=== PATIENT | female | born 1960 | race Caucasian/White ===

== ENCOUNTER → 2016-09-27 | Outpatient (CLI) | payer MEDICAID ==
[2016-09-27 18:08] LABS: ALBUMIN 3.6 GM/DL (3.2-5.2); CALCIUM LEVEL 9.1 MG/DL (8.5-10.1); CREATININE FOR GFR 5.24 MG/DL (0.55-1.02); GLOMERULAR FILTRATION RATE 9.1 (>51); MAGNESIUM LEVEL 2.1 MG/DL (1.8-2.4); POTASSIUM SERUM 4.4 MEQ/L (3.5-5.1)
[2016-09-27 18:14] LABS: MEAN CORPUSCULAR VOLUME 84.5 fl (80.0-96.0); WHITE BLOOD COUNT 9.4 K/mm3 (4.0-10.0)
== END ==
LOC: M WUC 13:40
PROVIDERS: ATTEND Internal Medicine Nephrology
DX: N18.5 Chronic kidney disease, stage 5 (principal)

== ENCOUNTER → 2016-11-15 | Outpatient (REF) | payer MEDICAID ==
[2016-11-15 19:02] LABS: CHOLESTEROL LEVEL 166 MG/DL (<200); TRIGLYCERIDES LEVEL 323 MG/DL (<150)
[2016-11-16 11:04] LABS: HEPATITIS B SURFACE ANTIBODY NEGATIVE (POSITIVE)
== END ==
LOC: M LAB REF 16:54
PROVIDERS: ATTEND Internal Medicine Nephrology
DX: N18.5 Chronic kidney disease, stage 5 (principal)

== ENCOUNTER → 2017-01-25 | Outpatient (REF) | payer OTHER ==
[2017-01-25 19:11] LABS: CHOLESTEROL LEVEL 162 MG/DL (<200); TRIGLYCERIDES LEVEL 351 MG/DL (<150)
[2017-01-28 10:35] LABS: HEPATITIS B SURFACE ANTIBODY NEGATIVE (POSITIVE)
== END ==
LOC: M LAB REF 16:50
PROVIDERS: ATTEND Internal Medicine Nephrology
DX: N18.6 End stage renal disease (principal)

== ENCOUNTER → 2017-02-19 | Outpatient (CLI) | payer OTHER ==
[2017-02-19 19:16] LABS: CREATININE FOR GFR 2.37 MG/DL (0.55-1.02); GLOMERULAR FILTRATION RATE 22.6 (>51); POTASSIUM SERUM 4.4 MEQ/L (3.5-5.1)
== END ==
LOC: M SMT 15:35
PROVIDERS: ATTEND Surgery Vascular Surgery
DX: N18.6 End stage renal disease (principal)

== ENCOUNTER → 2017-02-21 | Outpatient (CLI) | payer OTHER ==
[~2017-02-21] MED LIST: ATEN50TA2 PO; BREO1INH INH; FEBU40TA PO; GABA-279 PO; HEPARIN 1,000 UNITS/ML 10ML VIAL (FOR RADIOLOGY& DIALYSIS ONLY) As Ordered ONE; HYDR-3713 PO; ISOVUE-300 61% 50ML VIAL (Q9967) As Ordered ONE; LOSA50TA20 PO; MIDAZOLAM INJ 2 MG/2 ML VIAL (J2250) As Ordered ONE; NEXI40CA PO; SING10TA32 PO; VITA100067 PO; ZYRT10TA2 PO; fentaNYL 100 MCG/2 ML INJECTION (J3010) As Ordered ONE
--- NOTE | 2017-02-27 20:54 | REP ---
IMAGES DURING AV FISTULA ANGIOGRAM: Multiple angiographic images obtained of AV fistula. 0.6 minutes fluoroscopy time utilized for the procedure. Signed by Carlos Valenzuela MD 02/28/2017 09:59 A
--- NOTE | 2017-03-07 20:24 | RO ---
DATE OF PROCEDURE: 02/21/2017 PREPROCEDURE DIAGNOSES: End-stage renal disease, dysfunctional left brachiocephalic arterial venous fistula. POSTPROCEDURE DIAGNOSES: End-stage renal disease, dysfunctional left brachiocephalic arterial venous fistula. OPERATIVE PROCEDURE: Left brachiocephalic arteriovenous fistulogram, left cephalic vein angioplasty with 7 x 150 mm balloon. Retrograde brachial artery angiogram. SURGEON: Karl Chavez MD BUSHEL GIRL: ANESTHESIA: Local with sedation with 1 mg of Versed, 50 mg of fentanyl and 2 mL of 2% lidocaine. FLUORO TIME: 0.6 minutes. CONTRAST: 6 mL. HEPARIN: None. COMPLICATIONS: None. DRAINS: None. SPECIMENS: None. IMPLANTS: None. INDICATION: The patient is a 56-year-old female with end-stage renal disease who dialyzes through a left brachiocephalic arteriovenous fistula with some difficulty. The patient will undergo a fistulogram with possible angioplasty and stent. The patient has difficulty with cannulation, especially in the upper arm. The risks, benefits and alternative treatment options were discussed with the patient. Alternative treatment options included but were not limited to no intervention. The risks included, but were not limited to infection, bleeding, loss of arterial venous access, Steal syndrome, possible need for further open surgical intervention, cerebrovascular accident, myocardial infarction, pulmonary embolus, deep venous thrombosis (DVT), loss of limb, loss of life, and poor outcome. The patient understands, accepts these risks and consents to proceed. DESCRIPTION OF PROCEDURE: The patient was taken to the angiography suite, placed supine on the angiography room table and the left upper extremity was prepped and draped in a standard surgical fashion. The arteriovenous fistula was cannulated with a micropuncture needle after anesthetizing the overlying skin with 1% lidocaine. The micropuncture wire was advanced through the micropuncture needle which was upsized to a micropuncture sheath. A fistulogram was performed showing the cephalic vein to be patent and quite tortuous in the upper arm with good flow into the central venous system with no central venous stenosis noted. There was some minor narrowing in the cephalic vein in the mid upper arm in the areas of tortuosity of approximately 60%. The cephalic vein from the puncture site at the antecubital fossa to the cephalic arch was angioplastied with a 7 x 150 mm balloon. A followup fistulogram showed resolution of the stenoses with improved size and flow through the fistula. A retrograde brachial artery angiogram was then performed during inflation of the 7 x 150 mm balloon showing the remainder of the cephalic vein to be patent to the anastomosis to the brachial artery with good flow in the brachial artery proximally and distally. There was some minor narrowing at the cannulation site but this was secondary to insertion of the cannula and sheath and there was good flow noted around this area. Catheters and wires were then removed. The sheath was removed and a #2-0 Prolene suture placed at the puncture site for hemostasis. Dressings were then applied. The patient tolerated the procedure well. All instruments, sponge and needle counts were correct at the end of the case. There were no complications. Dr. Chavez was present for and directed the entire case. The patient was transferred to the holding area and subsequently to the floor in stable condition. The left brachiocephalic arteriovenous fistula was stable for use with hemodialysis access. RADIOLOGIC SUPERVISION INTERPRETATION: Initial fistulogram showed tortuosity and serpiginous lie of the cephalic vein in the mid upper arm with areas of stenosis in this region. Remainder of the cephalic vein was patent in the central venous system with no central venous stenosis or occlusion noted. The cephalic vein was angioplastied with a 7 x 150 balloon with a followup fistulogram showing resolution of the stenoses. A retrograde brachial artery angiogram showed good filling of the brachial artery proximal and distal to the arteriovenous anastomosis and no stenosis at the arteriovenous anastomosis. There was some mild narrowing at the entry site of the sheath. This appeared to be secondary to the sheath entry site and there appeared to be good flow around this region.
== END ==
LOC: M IRPRO 08:23
PROVIDERS: ATTEND Surgery Vascular Surgery
DX: N18.6 End stage renal disease (principal); I77.0 Arteriovenous fistula, acquired; Z88.6 Allergy status to analgesic agent; Z88.2 Allergy status to sulfonamides; Z88.8 Allergy status to other drugs, medicaments and biological substances

== ENCOUNTER → 2017-03-22 | Outpatient (CLI) | payer OTHER ==
[~2017-03-22] MED LIST changes: -HEPARIN 1,000 UNITS/ML 10ML VIAL (FOR RADIOLOGY& DIALYSIS ONLY) As Ordered ONE; -ISOVUE-300 61% 50ML VIAL (Q9967) As Ordered ONE; -MIDAZOLAM INJ 2 MG/2 ML VIAL (J2250) As Ordered ONE; -fentaNYL 100 MCG/2 ML INJECTION (J3010) As Ordered ONE
--- NOTE | 2017-03-22 16:20 | REP ---
CT abdomen pelvis without IV and oral contrast per The patient has known polycystic renal disease. Comparison 04/08/2008. On the comparison study there were four hepatic cysts. On the study today only two of the previous four cysts are identified, one in the lateral segment of the left lobe measuring 13 mm, not significantly changed, and the other in the medial segment of the left lobe measuring 13 ml, not significantly changed. The other two hepatic cysts identified previously are no longer identified on the current study. The the patient indicates she has a cholecystectomy. There is no identifiable gallbladder. The pancreas and spleen are normal size and unremarkable. There are innumerable renal cortical cysts bilaterally, unchanged from the comparison study, compatible with the clinical history. The kidneys are diffusely enlarged. The right kidney measures 26 cm craniocaudad and the left kidney measures 28 cm craniocaudad. (Previously 22 cm and 26 cm respectively). The adrenals are unremarkable. The abdominal aorta is unremarkable. The bowel and mesentery are unremarkable. Pelvis: The bladder, vaginal cuff and adnexa are unremarkable. There is no adenopathy or ascites. There is a tiny fat containing umbilical hernia, unchanged. Impression: The findings are compatible with the clinical diagnosis of polycystic renal disease. There are two hepatic cysts as described. Otherwise, essentially negative CT study of the abdomen and pelvis. Signed by Carlos Navarro MD 03/22/2017 04:12 P
== END ==
LOC: M RAD 14:50
PROVIDERS: ATTEND Internal Medicine Nephrology
DX: Q61.2 Polycystic kidney, adult type (principal); K42.9 Umbilical hernia without obstruction or gangrene; K76.89 Other specified diseases of liver

== ENCOUNTER → 2017-04-23 | Outpatient (CLI) | payer OTHER ==
[~2017-04-23] MED LIST changes: +HEPARIN 1,000 UNITS/ML 10ML VIAL (FOR RADIOLOGY& DIALYSIS ONLY) As Ordered ONE; +ISOVUE-300 61% 50ML VIAL (Q9967) As Ordered ONE; +MIDAZOLAM INJ 2 MG/2 ML VIAL (J2250) As Ordered ONE; +fentaNYL 100 MCG/2 ML INJECTION (J3010) As Ordered ONE
--- NOTE | 2017-05-21 08:06 | REPKIM ---
DATE OF PROCEDURE: 04/23/2017 PREPROCEDURE DIAGNOSIS: End stage renal disease, dysfunctional left brachiocephalic arteriovenous fistula. POSTPROCEDURE DIAGNOSIS: End stage renal disease, dysfunction left brachiocephalic arteriovenous fistula. PROCEDURE: Left brachiocephalic arteriovenous fistulogram, retrograde left brachial artery angiogram, left cephalic vein angioplasty with 8 x 40 Bryce balloon. SURGEON: Dr. Ángel Chavez. ANESTHESIOLOGY TEACHER: Latonia Hernandez and Stacey Bukc, RT ANESTHESIA: Local with sedation with 1 mg of Versed, 50 mcg of Fentanyl and 1 mL of 2% lidocaine. ESTIMATED BLOOD LOSS: SEDATION TIME: From 8:48 a.m. to 9:02 a.m. with sedation administered by myself and the cardiopulmonary monitoring performed by the RN in the room under my direct supervision. CONTRAST: 4 mL. COMPLICATIONS: None. DRAINS: None. SPECIMENS: None. IMPLANTS: None. FLUORO TIME: 1.3 minutes. INDICATION: Patient is a 56-year-old female with end stage renal disease who dialyzes through a PermCath and a left brachiocephalic arteriovenous fistula. Patient has had difficulty with cannulation and use of the left brachiocephalic arteriovenous fistula due to non-maturation. Patient will undergo a fistulogram with possible angioplasty and/or stent. Risks, benefits and alternative treatment options were discussed with the patient. Alternative treatment options including but were not limited to no intervention. Benefits included but were not limited to improved function and use of the fistula with removal of the perm cath. Risks included but were not limited to infection, bleeding, possible need for open surgical intervention, steal syndrome, loss of arteriovenous access, cerebrovascular accident, myocardial infarction, pulmonary embolus, deep venous thrombosis (DVT), loss of limb, loss of life and poor outcome. Patient understands, accepts these risks and consents to proceed. All of the patient's questions were answered. The patient voices understanding of these risks, benefits and alternative treatment options. PROCEDURE: The patient was taken to the angiography suite and placed supine on the angiography room table and the left upper extremity was prepped and draped in the standard surgical fashion. The arteriovenous fistula was then cannulated with a micropuncture needle after anesthetizing the overlying skin with 1% lidocaine. The micropuncture wire was advanced through the micropuncture needle which was upsized to a micropuncture sheath. A fistulogram was performed showing multiple areas of narrowing along the course of the cephalic vein which were approximately 60-70% with the central venous system being widely patent. The cephalic vein along the course from the puncture site to the cephalic arch was then angioplastied with an 8 x 40 mm balloon. A retrograde left brachial artery angiogram was performed showing the remainder of the cephalic vein to be widely patent to the brachial artery with no stenosis at the brachial artery to cephalic vein anastomosis. A completion fistulogram was then performed after angioplasty of the cephalic vein showing resolution of the stenoses with good flow through the arteriovenous fistula. The catheters and wires were removed, the sheath was removed and a #2-0 Prolene suture was placed at the puncture site for hemostasis. Dressings were then applied. The patient tolerated the procedure well. All instrument, sponge and needle counts were correct at the end of the case. There were no complications. Dr. Chavez was present for and directed the entire case. Patient's fistula had a good thrill palpable at the completion of the intervention. Patient was transferred to the holding area and subsequently discharged in stable condition once the #2-0 Prolene suture was removed and good hemostasis noted.
== END | disposition home or self-care (01) ==
LOC: M IRPRO 07:23 → M RADPRO 07:23
PROVIDERS: ATTEND Surgery Vascular Surgery
DX: T82.590A Other mechanical complication of surgically created arteriovenous fistula, initial encounter (principal); I87.1 Compression of vein; N18.6 End stage renal disease; Z99.2 Dependence on renal dialysis
CPT/HCPCS: 36902; 99152; C1725; C1769; C1894; J2250; J3010; Q9967

== ENCOUNTER → 2017-05-24 | Outpatient (CLI) | payer OTHER ==
[~2017-05-24] MED LIST changes: -HEPARIN 1,000 UNITS/ML 10ML VIAL (FOR RADIOLOGY& DIALYSIS ONLY) As Ordered ONE; -ISOVUE-300 61% 50ML VIAL (Q9967) As Ordered ONE; -MIDAZOLAM INJ 2 MG/2 ML VIAL (J2250) As Ordered ONE; -fentaNYL 100 MCG/2 ML INJECTION (J3010) As Ordered ONE
--- NOTE | 2017-05-24 16:57 | ECGEPIP ---
Stationary ECG Study [facility] Test Date: 2017-05-24 Pat Name: KRYSTINA ASKEW Department: Room: - Gender: F Coding Coordinator: : 1960 Requested By: Melvin Cat Order Number: [id number] Reading MD: José Luis Goldman Measurements Intervals [place] Rate: 64 P: 56 MD: 159 QRS: -27 QRSD: 82 T: 27 QT: 417 QTc: 433 Interpretive Statements Normal sinus rhythm Left axis deviation Delayed anterior R wave progression Nonspecific T wave abnormality No significant change when compared to prior tracing of 02/12/2015 Electronically Signed On 05-24-2017 16:56:56 EDT by José Luis Goldman
== END ==
LOC: M EKG 15:29
PROVIDERS: ATTEND Anesthesiology
DX: Z01.818 Encounter for other preprocedural examination (principal); K21.9 Gastro-esophageal reflux disease without esophagitis; R03.0 Elevated blood-pressure reading, without diagnosis of hypertension

== ENCOUNTER 2017-05-28 13:34 | Day surgery (SDC) | payer OTHER ==
[~2017-05-28] VITALS: Ht 154.9 cm; Wt 71.2 kg
[2017-05-28] MEDS ORDERED: NS 1,000 ML IV SCH ×2 (13:45→19:45)
[2017-05-28] MEDS ORDERED: LIDOCAINE 1% SDV INJ 30 ML VIAL As Ordered ONE (13:51)
[2017-05-28] MEDS ORDERED: BUPIVACAINE HCL 0.5% 30 ML VIAL As Ordered ONE (13:51)
[2017-05-28] MEDS ORDERED: ONDANSETRON 4MG/2ML VIAL (J2405) As Ordered ONE ×2 (16:34→19:05)
[2017-05-28] MEDS ORDERED: NORCO, ANEXSIA 5/325MG TABLET (HYDROcodone/ACETAMINOPHEN) As Ordered ONE (16:36)
[2017-05-28] MEDS ORDERED: ONDANSETRON 4MG/2ML VIAL (J2405) IV ONE (16:45)
[2017-05-28] MEDS ORDERED: NORCO, ANEXSIA 5/325MG TABLET (HYDROcodone/ACETAMINOPHEN) PO ONE (16:45)
[2017-05-28] MEDS ORDERED: PROPOFOL 200 MG/20 ML VIAL As Ordered ONE (18:46)
[2017-05-28] MEDS ORDERED: LIDOCAINE 2% INJ 100 MG/5 ML SYRINGE As Ordered ONE (18:46)
[2017-05-28] MEDS ORDERED: MIDAZOLAM INJ 2 MG/2 ML VIAL (J2250) As Ordered ONE (18:46)
[2017-05-28] MEDS ORDERED: fentaNYL 100 MCG/2 ML INJECTION (J3010) As Ordered ONE (18:46)
[2017-05-28] MEDS ORDERED: ROCURONIUM BROMIDE 50 MG/5 ML VIAL/SYRINGE As Ordered ONE (18:46)
[2017-05-28] MEDS ORDERED: GLYCOPYRROLATE INJ 0.2 MG/ML 2 ML VIAL As Ordered ONE (19:05)
[2017-05-28] MEDS ORDERED: METOCLOPRAMIDE INJ 10MG/2ML VIAL (J2765) As Ordered ONE (19:05)
[2017-05-28] MEDS ORDERED: NEOSTIGMINE 1MG/ML 5 ML SYRINGE (J2710) As Ordered ONE (19:05)
[2017-05-28] MEDS ORDERED: fentaNYL 100 MCG/2 ML INJECTION (J3010) IV PRN (19:45)
[2017-05-28] MEDS ORDERED: PERCOCET 5MG/325MG TAB PO PRN (19:45)
[2017-05-28] MEDS ORDERED: METOCLOPRAMIDE INJ 10MG/2ML VIAL (J2765) IV PRN (19:45)
[2017-05-28] MEDS ORDERED: ONDANSETRON 4MG/2ML VIAL (J2405) IV PRN (19:45)
[2017-05-28] MEDS ORDERED: MEPERIDINE INJ 25 MG/ML VIAL (J2175) IV PRN (19:45)
[2017-05-28] MEDS ORDERED: ALBUTEROL SULFATE 2.5 MG/0.5 ML INH NEB SOLN As Ordered ONE (20:06)
[2017-05-28 20:50] VITALS: BP 152/69
--- NOTE | 2017-06-26 17:38 | RO ---
DATE OF PROCEDURE: 05/28/2017 PREPROCEDURE DIAGNOSIS: End stage renal disease, polycystic kidney disease. POSTPROCEDURE DIAGNOSIS: End stage renal disease, polycystic kidney disease. PROCEDURE: Laparoscopic lysis of adhesions. Laparoscopic peritoneal dialysis catheter placement. SURGEON: Ángel Chavez MD CLERK GENERAL: None. ANESTHESIA: General endotracheal with 7 mL of 1% Lidocaine mixed with 1/2% Marcaine. ESTIMATED BLOOD LOSS: 500 mL. IV FLUIDS: 400 mL. COMPLICATIONS: None. DRAINS: None. SPECIMENS: None. IMPLANTS: 62 cm curl tail with a peritoneal dialysis catheter in the abdominal cavity. INDICATION: The patient is a 56-year-old female with currently dialyzes for a left brachial cephalic arteriovenous fistula and has had difficulty with cannulation as well as hematoma formation and would like to undergo attempted placement of the peritoneal dialysis catheter for peritoneal dialysis. Risks, benefits, and alternative treatment options were discussed with the patient. DESCRIPTION OF PROCEDURE: The patient was taken to the operating room. Placed supine on the operating room table and then prepped and draped in the standard surgical fashion. The 5 mm port was placed through a stab incision in the left upper quadrant, after which the abdominal cavity was insufflated. There was adhesions from the omentum to the umbilicus which were taken down sharply. After which a catheter was brought through a puncture wound in the infraumbilical region and tunneled to the port site in the left upper quadrant. Catheter was placed in the pelvis and secured with a suture after which the abdomen was desufflated. The catheter was flushed with 1 liter of saline which turned easily. The puncture wounds were closed using inverted 3-0 Monocryl suture. Dressings were applied. The patient tolerated the procedure well. All instrument, sponge and needle counts were correct at the end of the case. There were no complications. Dr. Chavez was present for and directed the entire case. The patient was transferred to the recovery room awake, alert, extubated and in stable condition.
== END 2017-05-28 21:15 | disposition home or self-care (01) ==
LOC: M SDC 13:34
PROVIDERS: ATTEND Surgery Vascular Surgery
DX: N18.6 End stage renal disease (principal); Q61.3 Polycystic kidney, unspecified; Z99.2 Dependence on renal dialysis

== ENCOUNTER → 2017-06-24 | Outpatient (CLI) | payer OTHER | LOC: M IRPRO 12:29 | PROVIDERS: ATTEND Surgery Vascular Surgery | DX: N18.6 End stage renal disease (principal); Z53.8 Procedure and treatment not carried out for other reasons ==

== ENCOUNTER → 2018-01-13 | Outpatient (REF) | payer OTHER, MEDICAID | LOC: M LAB REF 17:06 | DX: Q61.2 Polycystic kidney, adult type (principal); N39.0 Urinary tract infection, site not specified; N18.6 End stage renal disease | CPT/HCPCS: 87086 ==

== ENCOUNTER → 2018-01-22 | Outpatient (CLI) | payer OTHER ==
[~2018-01-22] MED LIST changes: -ATEN50TA2 PO; -BREO1INH INH; -FEBU40TA PO; -GABA-279 PO; +GASTROGRAFIN SOLUTION 30ML (Q9963) As Ordered; -HYDR-3713 PO; +ISOVUE-370 76% 100ML VIAL (Q9967) As Ordered; -LOSA50TA20 PO; -NEXI40CA PO; -SING10TA32 PO; -VITA100067 PO; -ZYRT10TA2 PO
== END ==
LOC: M RAD 13:54
DX: Q61.2 Polycystic kidney, adult type (principal); N18.6 End stage renal disease; R10.30 Lower abdominal pain, unspecified
CPT/HCPCS: Q9963

== ENCOUNTER → 2018-01-30 | Outpatient (CLI) | payer OTHER | LOC: M RAD 11:06 | DX: R91.8 Other nonspecific abnormal finding of lung field (principal); J90 Pleural effusion, not elsewhere classified; N18.6 End stage renal disease; Q61.2 Polycystic kidney, adult type; Z99.2 Dependence on renal dialysis | CPT/HCPCS: 71250 ==

== ENCOUNTER 2018-02-01 20:17 | Inpatient (IN) | payer OTHER ==
[2018-02-01 21:16] LABS: HEMOGLOBIN 14.5 g/dl (12.0-15.5); MEAN CORPUSCULAR HEMOGLOBIN 26.3 pg (27.0-33.0); MEAN CORPUSCULAR HGB CONC 30.2 g/dl (32.0-36.5); PLATELET COUNT, AUTOMATED 295 10^3/uL (150-450); RED BLOOD COUNT 5.52 10^6/uL (4.00-5.40); RED CELL DISTRIBUTION WIDTH 17.7 % (11.5-14.5); WHITE BLOOD COUNT 14.5 10^3/uL (4.0-10.0)
[2018-02-01 21:20] LABS: POS COUNT POS FLAG; POSITIVE MORPH POS FLAG
[2018-02-01 21:21] LABS: ADD MANUAL DIFFER YES; DIFF SLIDE NUMBER 193
[2018-02-01 21:42] LABS: LACTIC ACID SEPSIS PROTOCOL 3.5 MMOL/L (0.4-2.0)
[2018-02-01 21:42] LABS: ANISOCYTOSIS 1+; ATYPICAL LYMPH 1 % (0-5); BANDS 1 % (< 11); EOSINOPHILS 1 % (0-5); LYMPHOCYTES 12 % (16-52); MONOCYTES 7 % (0-8); NEUTROPHILS 78 % (35-75); PLATELET CLUMPS SMALL AMT; PLATELET ESTIMATE NORMAL (NORMAL); POLYCHROMASIA 1+
[2018-02-01 21:43] LABS: ALBUMIN 1.2 GM/DL (3.2-5.2); ALKALINE PHOSPHATASE 198 U/L (45-117); ALT/SGPT 31 U/L (12-78); ANION GAP 11 MEQ/L (8-16); AST/SGOT 20 U/L (7-37); BILIRUBIN,DIRECT 0.1 MG/DL (0.0-0.2); BILIRUBIN,TOTAL 0.4 MG/DL (0.2-1.0); BLOOD UREA NITROGEN 42 MG/DL (7-18); CALCIUM LEVEL 8.8 MG/DL (8.5-10.1); CARBON DIOXIDE LEVEL 30 MEQ/L (21-32); CHLORIDE LEVEL 88 MEQ/L (98-107); CPK CREATINE PHOSPHOKINASE 53 U/L (26-192); CREATININE FOR GFR 6.44 MG/DL (0.55-1.30); GLOMERULAR FILTRATION RATE 7.1 (>51); GLUCOSE, FASTING 218 MG/DL (70-100); SODIUM LEVEL 129 MEQ/L (136-145); TOTAL PROTEIN 7.1 GM/DL (6.4-8.2); TROPONIN I < 0.02 NG/ML (< 0.10)
[2018-02-01 21:44] LABS: CK-MB VALUE MASS 2.7 NG/ML (<3.6); MB/CK RELATIVE INDEX 5.09 (< OR =4); NT-PRO BNP 4658 PG/ML (<125)
[2018-02-01 21:47] LABS: POTASSIUM SERUM 2.8 MEQ/L (3.5-5.1)
[2018-02-01 22:31] LABS: MAGNESIUM LEVEL 3.7 MG/DL (1.8-2.4)
[2018-02-01] MEDS: POTASSIUM CHLORIDE 10% LIQ 20 MEQ/15 ML UDC PO (22:52)
[2018-02-01] MEDS: KCL 10MEQ/100ML SWI (KRUN) 10 MEQ in APPROPRIATE DILUENT 1 EA IV (22:52)
[2018-02-01 23:08] LABS: SLIDE REVIEW Report; SOURCE PERIPHERAL SMEAR
[2018-02-01 23:09] LABS: REASON FOR REVIEW ANEMIA / RBC MORPH
[2018-02-01 23:17] LABS: INR 1.05; PROTHROMBIN TIME 13.8 SECONDS (12.4-14.5)
[2018-02-01 23:18] LABS: PARTIAL THROMBOPLASTIN TIME 43.5 SECONDS (26.8-37.9)
[2018-02-01] MEDS ORDERED: CEFTAROLINE FOSAMIL 200 MG in D5W 50 ML IV (23:30)
[2018-02-01] MEDS ORDERED: IPRATROPIUM 0.5MG/ALBUTEROL 2.5MG INH SOL UD 3ML (DUONEB)(J7620) NEB (23:45)
[2018-02-01] MEDS ORDERED: NS 500 ML IV (23:45)
[2018-02-01] MEDS: LevoFLOXacin IV 750 MG in APPROPRIATE DILUENT 1 EA IV (23:55)
[2018-02-02] MEDS ORDERED: ACETAMINOPHEN TAB 650MG DOSE (2X325MG) PO
[2018-02-02] MEDS ORDERED: ONDANSETRON 4MG/2ML VIAL (J2405) IV
[2018-02-02] MEDS ORDERED: GLUCAGON FOR INJ 1 MG VIAL (J1610) SC (00:15)
[2018-02-02] MEDS ORDERED: GLUCOSE 4 GM CHEW TABLET PO (00:15)
[2018-02-02] MEDS ORDERED: DEXTROSE 50% 50 ML SYRINGE IV (00:15)
[2018-02-02 00:38] LABS: ABG BASE EXCESS 0.8 (-2.0-2.0); ABG HCO3 25.6 MEQ/L (22.0-26.0); ABG O2 SATURATION 97.6 % (95.0-99.0); ABG PARTIAL PRESSURE CO2 41.8 mmHg (35.0-45.0); ABG PARTIAL PRESSURE O2 92.2 mmHg (75.0-100.0); ABG STANDARD HCO3 25.2 MEQ/L (22.0-26.0); ABG TOTAL CO2 26.9 MEQ/L (22.0-29.0); ABG pH (ARTERIAL) 7.405 UNITS (7.350-7.450)
[2018-02-02 01:01] LABS: ESTIMATED AVERAGE GLUCOSE 177 MG/DL (60-110); HEMOGLOBIN A1c 7.8 %
[2018-02-02] MEDS: NS 1,000 ML IV ×4 (01:17→07:35)
[2018-02-02] MEDS ORDERED: VANCOMYCIN INTERMITTENT/PULSE DOSING BY CLINICAL PHARMACIST PER DOSING PROTOCOL XX (01:45)
[2018-02-02] MEDS: HumaLOG INSULIN (NovoLOG) PER UNIT SC ×6 (01:49→22:18)
[2018-02-02] MEDS: VANCOMYCIN HCL 1,000 MG, VIAL MATE ADAPTER 1 EACH in D5W 250 ML IV (02:01)
[2018-02-02] MEDS: POTASSIUM CHLORIDE 10 MEQ SR TABLET PO ×2 (02:02→08:46)
[2018-02-02] MEDS: NORCO, ANEXSIA 5/325MG TABLET (HYDROcodone/ACETAMINOPHEN) PO ×5 (02:03→21:24)
[2018-02-02 05:04] LABS: HEMATOCRIT 36.4 % (36.0-47.0); MEAN CORPUSCULAR HEMOGLOBIN 27.1 pg (27.0-33.0); MEAN CORPUSCULAR HGB CONC 30.8 g/dl (32.0-36.5); MEAN CORPUSCULAR VOLUME 87.9 fl (80.0-96.0); PLATELET COUNT, AUTOMATED 203 10^3/uL (150-450); POS COUNT POS FLAG; POSITIVE MORPH POS FLAG; RED BLOOD COUNT 4.14 10^6/uL (4.00-5.40); RED CELL DISTRIBUTION WIDTH 16.9 % (11.5-14.5); WHITE BLOOD COUNT 10.1 10^3/uL (4.0-10.0)
[2018-02-02 05:05] LABS: ADD MANUAL DIFFER YES; DIFF SLIDE NUMBER 79; HEMOGLOBIN 11.2 g/dl (12.0-15.5)
[2018-02-02] MEDS: IPRATROPIUM 0.5MG/ALBUTEROL 2.5MG INH SOL UD 3ML (DUONEB)(J7620) NEB ×4 (05:09→20:27)
[2018-02-02 05:19] LABS: CPK CREATINE PHOSPHOKINASE 42 U/L (26-192); TROPONIN I < 0.02 NG/ML (< 0.10)
[2018-02-02 05:20] LABS: CK-MB VALUE MASS 2.2 NG/ML (<3.6); MB/CK RELATIVE INDEX 5.23 (< OR =4)
[2018-02-02 05:20] LABS: LACTIC ACID SEPSIS PROTOCOL 3.6 MMOL/L (0.4-2.0)
[2018-02-02 05:23] LABS: ANION GAP 11 MEQ/L (8-16); BLOOD UREA NITROGEN 38 MG/DL (7-18); CARBON DIOXIDE LEVEL 24 MEQ/L (21-32); CHLORIDE LEVEL 99 MEQ/L (98-107); CREATININE FOR GFR 5.68 MG/DL (0.55-1.30); GLOMERULAR FILTRATION RATE 8.2 (>51); GLUCOSE, FASTING 175 MG/DL (70-100); POTASSIUM SERUM 3.6 MEQ/L (3.5-5.1); SODIUM LEVEL 134 MEQ/L (136-145)
[2018-02-02 05:29] LABS: ATYPICAL LYMPH 3 % (0-5); BANDS 2 % (< 11); EOSINOPHILS 2 % (0-5); LYMPHOCYTES 21 % (16-52); METAMYELOCYTES 1 % (0-0); MONOCYTES 6 % (0-8); NEUTROPHILS 65 % (35-75); PLATELET ESTIMATE NORMAL (NORMAL)
[2018-02-02 05:30] LABS: ANISOCYTOSIS 1+; PLATELET CLUMPS SMALL AMT; SMUDGE CELLS 1+
[2018-02-02 05:31] LABS: POLYCHROMASIA 1+
[2018-02-02 05:32] LABS: CALCIUM LEVEL 6.9 MG/DL (8.5-10.1); HYPOCHROMASIA 1+
[2018-02-02] MEDS: HEPARIN SOD (PORCINE) 5000 UNITS/ML VIAL SC ×3 (05:53→21:25)
[2018-02-02] MEDS: MONTELUKAST 10 MG TAB PO (07:55)
[2018-02-02] MEDS: HYDROCORTISONE 100 MG/2 ML VIAL (J1720) IV ×2 (07:55→16:55)
[2018-02-02] MEDS: GABAPENTIN 100 MG CAP PO ×2 (07:57→16:55)
[2018-02-02] MEDS: PANTOPRAZOLE 40MG TAB (PROTONIX) PO (07:58)
[2018-02-02] MEDS: LACTOBACILLUS ACIDOPHILUS CAP (BACID) PO ×3 (08:45→18:35)
[2018-02-02] MEDS: MEROPENEM INJ 1 GM in APPROPRIATE DILUENT 1 EA IV (08:46)
[2018-02-02] MEDS ORDERED: NORCO, ANEXSIA 5/325MG TABLET (HYDROcodone/ACETAMINOPHEN) PO (09:00)
[2018-02-02] MEDS ORDERED: POTASSIUM CHLORIDE 10% LIQ 20 MEQ/15 ML UDC PO (09:00)
[2018-02-02] MEDS ORDERED: MIDAZOLAM INJ 2 MG/2 ML VIAL (J2250) As Ordered ×4 (09:39→09:50)
[2018-02-02] MEDS ORDERED: LIDOCAINE 1% MDV 20ML VIAL As Ordered ×2 (09:42→10:22)
[2018-02-02] MEDS ORDERED: FLUMAZENIL 0.5 MG/5 ML VIAL As Ordered (09:42)
[2018-02-02] MEDS: MIDAZOLAM INJ 2 MG/2 ML VIAL (J2250) IV (10:24)
[2018-02-02 10:29] LABS: LDH LACTATE DEHYDROGENASE 280 U/L (84-246)
[2018-02-02] MEDS: ALTEPLASE 2 MG/2 ML VIAL (J2997 PER 1MG) XX (11:00)
[2018-02-02] MEDS: LIDOCAINE 1% MDV 20ML VIAL SC (11:00)
[2018-02-02 11:34] LABS: BEDSIDE GLUCOSE 252 MG/DL (70-105)
[2018-02-02 11:54] LABS: MAGNESIUM LEVEL 3.3 MG/DL (1.8-2.4)
[2018-02-02 15:13] LABS: VANCOMYCIN RANDOM 13.9 UG/ML
[2018-02-02] MEDS ORDERED: VANCOMYCIN HCL 1,000 MG, VIAL MATE ADAPTER 1 EACH in D5W 250 ML IV (16:00)
[2018-02-02] MEDS: VANCOMYCIN HCL 500 MG in D5W MINI-BAG PLUS 100 ML IV (17:10)
[2018-02-02 17:39] LABS: BEDSIDE GLUCOSE 289 MG/DL (70-105)
[2018-02-02] MEDS: NS 500 ML IV (20:49)
[2018-02-02] MEDS ORDERED: HumaLOG INSULIN (NovoLOG) PER UNIT SC (21:00)
[2018-02-02] MEDS: CETIRIZINE (ZyrTEC) 10 MG TAB PO (21:24)
[2018-02-02 22:19] LABS: BEDSIDE GLUCOSE 331 MG/DL (70-105)
[2018-02-03] MEDS: HYDROCORTISONE 100 MG/2 ML VIAL (J1720) IV ×5 (00:44→23:47)
[2018-02-03] MEDS: IPRATROPIUM 0.5MG/ALBUTEROL 2.5MG INH SOL UD 3ML (DUONEB)(J7620) NEB ×4 (01:25→19:33)
[2018-02-03 05:16] LABS: HEMOGLOBIN 11.9 g/dl (12.0-15.5); MEAN CORPUSCULAR HEMOGLOBIN 26.8 pg (27.0-33.0); MEAN CORPUSCULAR HGB CONC 30.5 g/dl (32.0-36.5); MEAN CORPUSCULAR VOLUME 87.8 fl (80.0-96.0); PLATELET COUNT, AUTOMATED 230 10^3/uL (150-450); RED BLOOD COUNT 4.44 10^6/uL (4.00-5.40); RED CELL DISTRIBUTION WIDTH 17.8 % (11.5-14.5); WHITE BLOOD COUNT 14.7 10^3/uL (4.0-10.0)
[2018-02-03 05:27] LABS: ANION GAP 11 MEQ/L (8-16); BLOOD UREA NITROGEN 32 MG/DL (7-18); CALCIUM LEVEL 7.8 MG/DL (8.5-10.1); CARBON DIOXIDE LEVEL 22 MEQ/L (21-32); CHLORIDE LEVEL 100 MEQ/L (98-107); CREATININE FOR GFR 5.06 MG/DL (0.55-1.30); GLOMERULAR FILTRATION RATE 9.4 (>51); GLUCOSE, FASTING 283 MG/DL (70-100); POTASSIUM SERUM 4.5 MEQ/L (3.5-5.1); SODIUM LEVEL 133 MEQ/L (136-145)
[2018-02-03 05:32] LABS: ADD MANUAL DIFFER YES; DIFF SLIDE NUMBER 84; POS COUNT POS FLAG; POSITIVE MORPH POS FLAG
[2018-02-03] MEDS: HEPARIN SOD (PORCINE) 5000 UNITS/ML VIAL SC ×3 (05:45→21:36)
[2018-02-03 05:55] LABS: BANDS 4 % (< 11); BASOPHILS 1 % (0-4); LYMPHOCYTES 8 % (16-52); MONOCYTES 2 % (0-8); MYELOCYTES 1 % (0-0); NEUTROPHILS 84 % (35-75)
[2018-02-03 05:56] LABS: ANISOCYTOSIS 1+; PLATELET ESTIMATE NORMAL (NORMAL)
[2018-02-03] MEDS: MEROPENEM INJ 1 GM in APPROPRIATE DILUENT 1 EA IV ×3 (08:00→16:13)
[2018-02-03 08:22] LABS: CORTISOL AM 12.2 UG/DL (4.3-22.4)
[2018-02-03 08:35] LABS: LACTIC ACID SEPSIS PROTOCOL 4.9 MMOL/L (0.4-2.0)
[2018-02-03] MEDS: FEBUXOSTAT 40 MG TABLET (ULORIC) PO (09:54)
[2018-02-03] MEDS: PANTOPRAZOLE 40MG TAB (PROTONIX) PO (09:54)
[2018-02-03] MEDS: LACTOBACILLUS ACIDOPHILUS CAP (BACID) PO ×2 (09:54→18:02)
[2018-02-03] MEDS: HumaLOG INSULIN (NovoLOG) PER UNIT SC ×4 (09:54→21:00)
[2018-02-03] MEDS: GABAPENTIN 100 MG CAP PO ×2 (09:55→16:12)
[2018-02-03] MEDS: MONTELUKAST 10 MG TAB PO (09:55)
[2018-02-03] MEDS: NORCO, ANEXSIA 5/325MG TABLET (HYDROcodone/ACETAMINOPHEN) PO ×2 (09:56→21:37)
[2018-02-03 12:20] LABS: BEDSIDE GLUCOSE 310 MG/DL (70-105)
[2018-02-03] MEDS ORDERED: SLF 3 ML SYR IV ×2 (12:30→14:00)
[2018-02-03 12:58] LABS: RBC BODY FLUID < 2 10^3/uL (<2)
[2018-02-03 12:59] LABS: APPEARANCE, BODY FLUID CLEAR (CLEAR); BF DIFF IF INDICATED? NO (NO); PERITONEAL DIALYSATE FL COLOR COLORLESS (COLORLESS); WBC BODY FLUID 9 /uL (0-10)
[2018-02-03] MEDS ORDERED: LINEZOLID 600MG TABLET (ZYVOX) PO (13:30)
[2018-02-03] MEDS ORDERED: LevoFLOXacin 250 MG TABLET PO (13:45)
[2018-02-03] MEDS: LevoFLOXacin 250 MG TABLET PO (15:00)
[2018-02-03] MEDS: LINEZOLID 600MG TABLET (ZYVOX) PO (15:00)
[2018-02-03 15:17] LABS: SOURCE, BODY FLUID PERITONEAL DIALYSATE
[2018-02-03] MEDS: SODIUM CHLORIDE 0.9% INJ 10 ML SYR IV ×4 (16:08→23:48)
[2018-02-03 17:31] LABS: BEDSIDE GLUCOSE 212 MG/DL (70-105)
[2018-02-03] MEDS: HEPARIN SOD (PORCINE) 5000 UNITS/ML VIAL PD (19:04)
[2018-02-03 21:18] LABS: BEDSIDE GLUCOSE 203 MG/DL (70-105)
[2018-02-03] MEDS: CETIRIZINE (ZyrTEC) 10 MG TAB PO (21:38)
[2018-02-03] MEDS ORDERED: LevoFLOXacin IV 500 MG in APPROPRIATE DILUENT 1 EA IV (23:00)
[2018-02-03 23:08] LABS: LACTIC ACID SEPSIS PROTOCOL 4.2 MMOL/L (0.4-2.0)
[2018-02-04] MEDS: IPRATROPIUM 0.5MG/ALBUTEROL 2.5MG INH SOL UD 3ML (DUONEB)(J7620) NEB ×4 (02:48→20:00)
[2018-02-04 03:17] LABS: HEMATOCRIT 38.7 % (36.0-47.0); HEMOGLOBIN 11.8 g/dl (12.0-15.5); MEAN CORPUSCULAR HEMOGLOBIN 26.9 pg (27.0-33.0); MEAN CORPUSCULAR HGB CONC 30.5 g/dl (32.0-36.5); MEAN CORPUSCULAR VOLUME 88.4 fl (80.0-96.0); PLATELET COUNT, AUTOMATED 217 10^3/uL (150-450); RED BLOOD COUNT 4.38 10^6/uL (4.00-5.40); RED CELL DISTRIBUTION WIDTH 18.1 % (11.5-14.5); WHITE BLOOD COUNT 16.8 10^3/uL (4.0-10.0)
[2018-02-04 03:18] LABS: ADD MANUAL DIFFER YES; DIFF SLIDE NUMBER 49; POS COUNT POS FLAG; POSITIVE MORPH POS FLAG
[2018-02-04 03:52] LABS: ANION GAP 12 MEQ/L (8-16); BLOOD UREA NITROGEN 31 MG/DL (7-18); CALCIUM LEVEL 7.3 MG/DL (8.5-10.1); CARBON DIOXIDE LEVEL 22 MEQ/L (21-32); CHLORIDE LEVEL 99 MEQ/L (98-107); CREATININE FOR GFR 4.89 MG/DL (0.55-1.30); GLOMERULAR FILTRATION RATE 9.8 (>51); GLUCOSE, FASTING 254 MG/DL (70-100); POTASSIUM SERUM 4.1 MEQ/L (3.5-5.1); SODIUM LEVEL 133 MEQ/L (136-145)
[2018-02-04 03:58] LABS: ANISOCYTOSIS 2+; BANDS 4 % (< 11); HYPOCHROMASIA 1+; LYMPHOCYTES 11 % (16-52); METAMYELOCYTES 1 % (0-0); MONOCYTES 5 % (0-8); NEUTROPHILS 79 % (35-75); PLATELET ESTIMATE NORMAL (NORMAL)
[2018-02-04] MEDS: VANCOMYCIN HCL 1,000 MG, VIAL MATE ADAPTER 1 EACH in D5W 250 ML IV (05:40)
[2018-02-04] MEDS: HEPARIN SOD (PORCINE) 5000 UNITS/ML VIAL SC ×3 (05:40→21:42)
[2018-02-04] MEDS: SODIUM CHLORIDE 0.9% INJ 10 ML SYR IV ×2 (05:40→17:21)
[2018-02-04] MEDS: HumaLOG INSULIN (NovoLOG) PER UNIT SC ×4 (08:48→21:00)
[2018-02-04] MEDS: HYDROCORTISONE 100 MG/2 ML VIAL (J1720) IV ×2 (08:48→17:27)
[2018-02-04] MEDS: LACTOBACILLUS ACIDOPHILUS CAP (BACID) PO ×2 (08:49→17:27)
[2018-02-04] MEDS: MONTELUKAST 10 MG TAB PO (08:50)
[2018-02-04] MEDS: GABAPENTIN 100 MG CAP PO ×2 (08:50→17:27)
[2018-02-04] MEDS: PANTOPRAZOLE 40MG TAB (PROTONIX) PO (08:50)
[2018-02-04] MEDS: NORCO, ANEXSIA 5/325MG TABLET (HYDROcodone/ACETAMINOPHEN) PO ×2 (08:50→21:41)
[2018-02-04 11:14] LABS: BEDSIDE GLUCOSE 323 MG/DL (70-105)
[2018-02-04] MEDS: SYMBICORT 80/4.5MCG INHALER 6GM INH ×2 (14:20→20:45)
[2018-02-04 17:11] LABS: BEDSIDE GLUCOSE 368 MG/DL (70-105)
[2018-02-04] MEDS: MEROPENEM INJ 1 GM in APPROPRIATE DILUENT 1 EA IV (17:26)
[2018-02-04] MEDS: LACTULOSE 20 GM/30 ML SYRUP UD PO (17:27)
[2018-02-04 20:20] LABS: BEDSIDE GLUCOSE 361 MG/DL (70-105)
[2018-02-04] MEDS: CETIRIZINE (ZyrTEC) 10 MG TAB PO (21:41)
[2018-02-05] MEDS: IPRATROPIUM 0.5MG/ALBUTEROL 2.5MG INH SOL UD 3ML (DUONEB)(J7620) NEB ×4 (01:41→20:00)
[2018-02-05] MEDS: HEPARIN SOD (PORCINE) 5000 UNITS/ML VIAL SC ×3 (05:12→22:36)
[2018-02-05] MEDS: SODIUM CHLORIDE 0.9% INJ 10 ML SYR IV ×2 (05:13→17:22)
[2018-02-05 06:03] LABS: HEMOGLOBIN 12.4 g/dl (12.0-15.5); MEAN CORPUSCULAR HEMOGLOBIN 26.6 pg (27.0-33.0); MEAN CORPUSCULAR HGB CONC 30.2 g/dl (32.0-36.5); MEAN CORPUSCULAR VOLUME 87.8 fl (80.0-96.0); PLATELET COUNT, AUTOMATED 209 10^3/uL (150-450); RED BLOOD COUNT 4.67 10^6/uL (4.00-5.40); RED CELL DISTRIBUTION WIDTH 18.6 % (11.5-14.5)
[2018-02-05 06:21] LABS: ANION GAP 13 MEQ/L (8-16); BLOOD UREA NITROGEN 35 MG/DL (7-18); CALCIUM LEVEL 7.9 MG/DL (8.5-10.1); CARBON DIOXIDE LEVEL 23 MEQ/L (21-32); CHLORIDE LEVEL 96 MEQ/L (98-107); CREATININE FOR GFR 4.79 MG/DL (0.55-1.30); GLUCOSE, FASTING 262 MG/DL (70-100); POTASSIUM SERUM 3.8 MEQ/L (3.5-5.1); SODIUM LEVEL 132 MEQ/L (136-145); VANCOMYCIN RANDOM 27.1 UG/ML
[2018-02-05 06:32] LABS: POSITIVE MORPH POS FLAG
[2018-02-05 06:33] LABS: ADD MANUAL DIFFER YES; DIFF SLIDE NUMBER 30; POS COUNT POS FLAG
[2018-02-05 07:17] LABS: ANISOCYTOSIS 1+; BANDS 1 % (< 11); LYMPHOCYTES 7 % (16-52); METAMYELOCYTES 3 % (0-0); MONOCYTES 7 % (0-8); MYELOCYTES 2 % (0-0); NEUTROPHILS 80 % (35-75); PLATELET ESTIMATE NORMAL (NORMAL)
[2018-02-05] MEDS: SYMBICORT 80/4.5MCG INHALER 6GM INH ×2 (07:47→21:22)
[2018-02-05] MEDS: HumaLOG INSULIN (NovoLOG) PER UNIT SC ×4 (08:21→22:46)
[2018-02-05] MEDS: MONTELUKAST 10 MG TAB PO (08:21)
[2018-02-05] MEDS: GABAPENTIN 100 MG CAP PO ×2 (08:21→16:25)
[2018-02-05] MEDS: FEBUXOSTAT 40 MG TABLET (ULORIC) PO (08:22)
[2018-02-05] MEDS: PANTOPRAZOLE 40MG TAB (PROTONIX) PO (08:22)
[2018-02-05] MEDS: NORCO, ANEXSIA 5/325MG TABLET (HYDROcodone/ACETAMINOPHEN) PO ×2 (08:22→22:35)
[2018-02-05] MEDS: LACTOBACILLUS ACIDOPHILUS CAP (BACID) PO ×2 (08:23→17:21)
[2018-02-05 12:40] LABS: BEDSIDE GLUCOSE 210 MG/DL (70-105)
[2018-02-05] MEDS: MEROPENEM INJ 1 GM in APPROPRIATE DILUENT 1 EA IV (16:25)
[2018-02-05 22:10] LABS: BEDSIDE GLUCOSE 258 MG/DL (70-105)
[2018-02-05] MEDS: CETIRIZINE (ZyrTEC) 10 MG TAB PO (22:35)
[2018-02-06] MEDS: IPRATROPIUM 0.5MG/ALBUTEROL 2.5MG INH SOL UD 3ML (DUONEB)(J7620) NEB ×3 (01:58→13:35)
[2018-02-06] MEDS: HEPARIN SOD (PORCINE) 5000 UNITS/ML VIAL SC ×2 (05:29→14:00)
[2018-02-06] MEDS: SODIUM CHLORIDE 0.9% INJ 10 ML SYR IV ×2 (05:30→08:51)
[2018-02-06 05:38] LABS: HEMATOCRIT 40.2 % (36.0-47.0); HEMOGLOBIN 12.3 g/dl (12.0-15.5); MEAN CORPUSCULAR HEMOGLOBIN 26.6 pg (27.0-33.0); MEAN CORPUSCULAR HGB CONC 30.6 g/dl (32.0-36.5); PLATELET COUNT, AUTOMATED 179 10^3/uL (150-450); RED BLOOD COUNT 4.62 10^6/uL (4.00-5.40); RED CELL DISTRIBUTION WIDTH 18.8 % (11.5-14.5)
[2018-02-06 05:40] LABS: ADD MANUAL DIFFER YES; DIFF SLIDE NUMBER 21; POS COUNT POS FLAG; POSITIVE DIFF POS FLAG; POSITIVE MORPH POS FLAG; WHITE BLOOD COUNT 20.7 10^3/uL (4.0-10.0)
[2018-02-06 06:22] LABS: ANION GAP 12 MEQ/L (8-16); BLOOD UREA NITROGEN 36 MG/DL (7-18); CALCIUM LEVEL 7.8 MG/DL (8.5-10.1); CARBON DIOXIDE LEVEL 26 MEQ/L (21-32); CHLORIDE LEVEL 97 MEQ/L (98-107); CREATININE FOR GFR 4.98 MG/DL (0.55-1.30); GLOMERULAR FILTRATION RATE 9.6 (>51); GLUCOSE, FASTING 150 MG/DL (70-100); POTASSIUM SERUM 3.4 MEQ/L (3.5-5.1); SODIUM LEVEL 135 MEQ/L (136-145)
[2018-02-06 06:25] LABS: VANCOMYCIN RANDOM 24.7 UG/ML
[2018-02-06 06:30] LABS: BANDS 3 % (< 11); EOSINOPHILS 1 % (0-5); LYMPHOCYTES 27 % (16-52); METAMYELOCYTES 3 % (0-0); MONOCYTES 7 % (0-8); MYELOCYTES 2 % (0-0); NEUTROPHILS 57 % (35-75)
[2018-02-06 06:31] LABS: ANISOCYTOSIS 2+; POLYCHROMASIA 1+
[2018-02-06 06:32] LABS: PLATELET ESTIMATE NORMAL (NORMAL)
[2018-02-06 06:33] LABS: BEDSIDE GLUCOSE 211 MG/DL (70-105)
[2018-02-06] MEDS: SYMBICORT 80/4.5MCG INHALER 6GM INH (08:47)
[2018-02-06] MEDS: MONTELUKAST 10 MG TAB PO (08:52)
[2018-02-06] MEDS: GABAPENTIN 100 MG CAP PO (08:52)
[2018-02-06] MEDS: PANTOPRAZOLE 40MG TAB (PROTONIX) PO (08:52)
[2018-02-06] MEDS: LACTOBACILLUS ACIDOPHILUS CAP (BACID) PO (08:52)
[2018-02-06] MEDS: HumaLOG INSULIN (NovoLOG) PER UNIT SC ×2 (08:52→12:00)
[2018-02-06] MEDS: NORCO, ANEXSIA 5/325MG TABLET (HYDROcodone/ACETAMINOPHEN) PO (08:54)
[2018-02-06 09:46] LABS: LACTIC ACID SEPSIS PROTOCOL 3.3 MMOL/L (0.4-2.0)
[2018-02-06 11:51] LABS: BEDSIDE GLUCOSE 227 MG/DL (70-105)
[2018-02-06] MEDS: cefTRIAXone SOD 2 GM in D5W MINI-BAG PLUS 50 ML IV (11:52)
[2018-02-08] MEDS ORDERED: VITAMIN D 50,000 UNITS CAPSULE (ERGOCALCIFEROL 1.25MG) PO (09:00)
== END 2018-02-06 16:20 | disposition home or self-care (01) | DRG 720 ==
LOC: M PCU 02-02 01:28 → M ED 20:17 → M ED INP 23:08
PROC: 0W9B30Z Drainage of Left Pleural Cavity with Drainage Device, Percutaneous Approach (ICD-10-PCS; principal; 2018-02-02)
PROC: 02HV33Z Insertion of Infusion Device into Superior Vena Cava, Percutaneous Approach (ICD-10-PCS; 2018-02-03)
DX: A41.9 Sepsis, unspecified organism (principal); J86.9 Pyothorax without fistula; N18.6 End stage renal disease; E87.2 Acidosis; J18.9 Pneumonia, unspecified organism; K76.89 Other specified diseases of liver; I12.0 Hypertensive chronic kidney disease with stage 5 chronic kidney disease or end stage renal disease; E87.1 Hypo-osmolality and hyponatremia; N25.81 Secondary hyperparathyroidism of renal origin; Q61.2 Polycystic kidney, adult type; E66.01 Morbid (severe) obesity due to excess calories; E83.42 Hypomagnesemia; K21.9 Gastro-esophageal reflux disease without esophagitis; F32.9 Major depressive disorder, single episode, unspecified; M10.9 Gout, unspecified; M62.08 Separation of muscle (nontraumatic), other site; Z79.899 Other long term (current) drug therapy; Z88.8 Allergy status to other drugs, medicaments and biological substances; Z88.6 Allergy status to analgesic agent; Z88.0 Allergy status to penicillin; K59.00 Constipation, unspecified; E87.6 Hypokalemia; J45.909 Unspecified asthma, uncomplicated; G89.29 Other chronic pain; Z88.2 Allergy status to sulfonamides; E11.9 Type 2 diabetes mellitus without complications; R65.20 Severe sepsis without septic shock

== ENCOUNTER → 2018-02-12 | Outpatient (REF) | payer OTHER | LOC: M LAB REF 08:28 | DX: R19.7 Diarrhea, unspecified (principal) ==

== ENCOUNTER 2018-02-14 11:36 | Inpatient (IN) | payer OTHER ==
[2018-02-14 11:55] LABS: BEDSIDE GLUCOSE 220 MG/DL (70-105)
[2018-02-14 12:01] LABS: ABG BASE EXCESS -0.7 (-2.0-2.0); ABG HCO3 22.7 MEQ/L (22.0-26.0); ABG O2 SATURATION 99.7 % (95.0-99.0); ABG PARTIAL PRESSURE CO2 34.1 mmHg (35.0-45.0); ABG PARTIAL PRESSURE O2 413.4 mmHg (75.0-100.0); ABG STANDARD HCO3 23.9 MEQ/L (22.0-26.0); ABG TOTAL CO2 23.7 MEQ/L (22.0-29.0); ABG pH (ARTERIAL) 7.441 UNITS (7.350-7.450)
[2018-02-14 12:08] LABS: BASO # 0.1 10^3/uL (0.0-0.2); BASO % 0.3 % (0.0-1.0); EOS % 0.1 % (0.0-3.0); HEMATOCRIT 45.1 % (36.0-47.0); HEMOGLOBIN 13.5 g/dl (12.0-15.5); IMMATURE GRANULOCYTE % 1.1 % (0-3.0); LYMPH # 3.3 10^3/uL (1.5-4.5); LYMPH % 10.6 % (24.0-44.0); MEAN CORPUSCULAR HEMOGLOBIN 28.1 pg (27.0-33.0); MEAN CORPUSCULAR HGB CONC 29.9 g/dl (32.0-36.5); MEAN CORPUSCULAR VOLUME 93.8 fl (80.0-96.0); NEUTROPHILS % 80.9 % (36.0-66.0); PLATELET COUNT, AUTOMATED 220 10^3/uL (150-450); RED BLOOD COUNT 4.81 10^6/uL (4.00-5.40); RED CELL DISTRIBUTION WIDTH 23.3 % (11.5-14.5)
[2018-02-14] MEDS: NS IV (12:30)
[2018-02-14] MEDS: DILUENT IV (12:30)
[2018-02-14 12:38] LABS: ACETAMINOPHEN LEVEL < 2.0 UG/ML (10.0-30.0); ALBUMIN 1.5 GM/DL (3.2-5.2); ALBUMIN/GLOBULIN RATIO 0.38 (1.00-1.93); ALKALINE PHOSPHATASE 139 U/L (45-117); ALT/SGPT 10 U/L (12-78); ANION GAP 15 MEQ/L (8-16); AST/SGOT 28 U/L (7-37); BILIRUBIN,DIRECT 0.1 MG/DL (0.0-0.2); BILIRUBIN,TOTAL 0.7 MG/DL (0.2-1.0); BLOOD UREA NITROGEN 33 MG/DL (7-18); CALCIUM LEVEL 8.2 MG/DL (8.5-10.1); CARBON DIOXIDE LEVEL 24 MEQ/L (21-32); CHLORIDE LEVEL 97 MEQ/L (98-107); CPK CREATINE PHOSPHOKINASE 63 U/L (26-192); CREATININE FOR GFR 7.16 MG/DL (0.55-1.30); ETHYL ALCOHOL (ETHANOL) 0.005 % (0.000-0.010); GLOMERULAR FILTRATION RATE 6.3 (>51); GLUCOSE, FASTING 176 MG/DL (70-100); MONO # 2.2 10^3/uL (0.0-0.8); NEUTROPHILS # 25.3 10^3/uL (1.8-7.7); POS COUNT POS FLAG; POSITIVE DIFF POS FLAG; POTASSIUM SERUM 4.1 MEQ/L (3.5-5.1); SALICYLATE LEVEL < 1.7 MG/DL (5.0-30.0); SODIUM LEVEL 136 MEQ/L (136-145); TOTAL PROTEIN 5.4 GM/DL (6.4-8.2); TROPONIN I < 0.02 NG/ML (< 0.10); WHITE BLOOD COUNT 31.3 10^3/uL (4.0-10.0)
[2018-02-14 12:44] LABS: CK-MB VALUE MASS 3.7 NG/ML (<3.6); MB/CK RELATIVE INDEX 5.87 (< OR =4)
[2018-02-14] MEDS: LevoFLOXacin IV 750 MG in APPROPRIATE DILUENT 1 EA IV (13:02)
[2018-02-14 13:17] LABS: LACTIC ACID SEPSIS PROTOCOL 4.6 MMOL/L (0.4-2.0)
[2018-02-14 13:26] LABS: OSMOLALITY SERUM 294 MOSM/KG (275-295)
[2018-02-14 13:26] LABS: AMMONIA 27 uMOL/L (<32)
[2018-02-14] MEDS ORDERED: ACETAMINOPHEN TAB 650MG DOSE (2X325MG) PO (15:00)
[2018-02-14] MEDS ORDERED: NOREPINEPHRINE 4 MG/4 ML AMP As Ordered (15:23)
[2018-02-14] MEDS: NS 1,000 ML IV ×5 (15:51→21:30)
[2018-02-14] MEDS: NOREPINEPHRINE BITARTRATE 16 MG in D5W 484 ML IV (15:53)
[2018-02-14 16:02] LABS: FREE T4 0.95 NG/DL (0.76-1.46)
[2018-02-14] MEDS: NORCO, ANEXSIA 5/325MG TABLET (HYDROcodone/ACETAMINOPHEN) PO ×3 (16:30→21:54)
[2018-02-14] MEDS ORDERED: BISACODYL 10 MG SUPP PR (16:30)
[2018-02-14] MEDS: MEROPENEM INJ 1 GM in APPROPRIATE DILUENT 1 EA IV (16:52)
[2018-02-14] MEDS: VANCOMYCIN HCL 1,000 MG, VIAL MATE ADAPTER 1 EACH in D5W 250 ML IV (16:52)
[2018-02-14] MEDS: GI COCKTAIL 50ML BTL(HYOSCYAMINE/MAALOX/LIDOCAINE VISCOUS)(1:3:1) PO (18:33)
[2018-02-14] MEDS ORDERED: IPRATROPIUM 0.5MG/ALBUTEROL 2.5MG INH SOL UD 3ML (DUONEB)(J7620) NEB (18:45)
[2018-02-14] MEDS: MEROPENEM INJ 500 MG in APPROPRIATE DILUENT 1 EA IV (19:53)
[2018-02-14] MEDS: VANCOMYCIN HCL 500 MG in D5W MINI-BAG PLUS 100 ML IV (19:54)
[2018-02-14] MEDS: ONDANSETRON 4MG/2ML VIAL (J2405) IV (21:50)
[2018-02-14 22:20] LABS: LACTIC ACID SEPSIS PROTOCOL 3.9 MMOL/L (0.4-2.0)
[2018-02-14] MEDS: FLUCONAZOLE 200 MG in APPROPRIATE DILUENT 1 EA IV (23:50)
[2018-02-15 01:36] LABS: APPEARANCE, BODY FLUID CLEAR (CLEAR); BF DIFF IF INDICATED? NO (NO); PERITONEAL DIALYSATE FL COLOR COLORLESS (COLORLESS); RBC BODY FLUID < 2 10^3/uL (<2); SOURCE, BODY FLUID PERITONEAL DIALYSATE; WBC BODY FLUID 8 /uL (0-10)
[2018-02-15] MEDS: NS 500 ML IV (02:00)
[2018-02-15] MEDS: NS 1,000 ML IV ×2 (02:10→04:50)
[2018-02-15] MEDS: ONDANSETRON 4MG/2ML VIAL (J2405) IV ×3 (04:31→20:44)
[2018-02-15] MEDS: NORCO, ANEXSIA 5/325MG TABLET (HYDROcodone/ACETAMINOPHEN) PO ×3 (04:31→20:42)
[2018-02-15 06:37] LABS: BASO % 0.1 % (0.0-1.0); HEMATOCRIT 34.1 % (36.0-47.0); IMMATURE GRANULOCYTE % 1.6 % (0-3.0); LYMPH # 1.1 10^3/uL (1.5-4.5); LYMPH % 5.9 % (24.0-44.0); MEAN CORPUSCULAR HEMOGLOBIN 28.9 pg (27.0-33.0); MEAN CORPUSCULAR HGB CONC 30.5 g/dl (32.0-36.5); MEAN CORPUSCULAR VOLUME 94.7 fl (80.0-96.0); MONO # 0.9 10^3/uL (0.0-0.8); NEUTROPHILS % 87.4 % (36.0-66.0); PLATELET COUNT, AUTOMATED 125 10^3/uL (150-450); RED CELL DISTRIBUTION WIDTH 23.2 % (11.5-14.5); WHITE BLOOD COUNT 18.3 10^3/uL (4.0-10.0)
[2018-02-15 06:51] LABS: HEMOGLOBIN 10.4 g/dl (12.0-15.5)
[2018-02-15 07:01] LABS: ALBUMIN 1.2 GM/DL (3.2-5.2); ALBUMIN/GLOBULIN RATIO 0.48 (1.00-1.93); ALKALINE PHOSPHATASE 97 U/L (45-117); ALT/SGPT 11 U/L (12-78); ANION GAP 11 MEQ/L (8-16); AST/SGOT 13 U/L (7-37); BILIRUBIN,TOTAL 0.4 MG/DL (0.2-1.0); BLOOD UREA NITROGEN 28 MG/DL (7-18); CALCIUM LEVEL 6.1 MG/DL (8.5-10.1); CARBON DIOXIDE LEVEL 20 MEQ/L (21-32); CHLORIDE LEVEL 112 MEQ/L (98-107); CREATININE FOR GFR 5.38 MG/DL (0.55-1.30); GLOMERULAR FILTRATION RATE 8.8 (>51); GLUCOSE, FASTING 117 MG/DL (70-100); POTASSIUM SERUM 3.4 MEQ/L (3.5-5.1); SODIUM LEVEL 143 MEQ/L (136-145); TOTAL PROTEIN 3.7 GM/DL (6.4-8.2)
[2018-02-15 07:21] LABS: C REACTIVE PROTEIN QUANTITATIV 4.77 MG/DL (0.00-0.30)
[2018-02-15 07:26] LABS: LIPASE 88 U/L (73-393)
[2018-02-15 07:53] LABS: BF MONONUCLEAR CELL % 76.9 % (0-0); BF POLYMORPHONUCLEAR CELL % 23.1 % (0-0); RBC BODY FLUID < 2 10^3/uL (<2); WBC BODY FLUID 13 /uL (0-10)
[2018-02-15 08:12] LABS: APPEARANCE, BODY FLUID CLEAR (CLEAR); BF DIFF IF INDICATED? YES (NO); PERITONEAL DIALYSATE FL COLOR COLORLESS (COLORLESS); SOURCE, BODY FLUID PERITONEAL DIALYSATE
[2018-02-15] MEDS: MEROPENEM INJ 1 GM in APPROPRIATE DILUENT 1 EA IV (08:41)
[2018-02-15] MEDS: LEVOTHYROXINE 100 MCG (0.1MG) VIAL IV (08:41)
[2018-02-15] MEDS: PANTOPRAZOLE 40MG INJ (PROTONIX) (C9113) IV (08:41)
[2018-02-15] MEDS: GI COCKTAIL 50ML BTL(HYOSCYAMINE/MAALOX/LIDOCAINE VISCOUS)(1:3:1) PO ×2 (08:42→20:43)
[2018-02-15 09:12] LABS: ERYTHROCYTE SEDIMENTATION RATE 5 mm/hr (0-30)
[2018-02-15] MEDS: KCL 20MEQ in NS 1000ML 1,000 ML IV ×2 (12:12→20:45)
[2018-02-15] MEDS: VANCOMYCIN HCL 1,000 MG, VIAL MATE ADAPTER 1 EACH in D5W 250 ML IV (12:13)
[2018-02-15 12:30] LABS: MAGNESIUM LEVEL 1.5 MG/DL (1.8-2.4)
[2018-02-15] MEDS: MAG SULF 1GM/100ML (MAG RUN) 1 GM in APPROPRIATE DILUENT 1 EA IV (13:42)
[2018-02-15] MEDS: HEPARIN SOD (PORCINE) 5000 UNITS/ML VIAL SQ ×2 (13:42→20:44)
[2018-02-15] MEDS ORDERED: FLUTICASONE PROP 0.05% NASAL SPRAY 16 GM (FLONASE) (15:00)
[2018-02-15] MEDS: IPRATROPIUM 0.5MG/ALBUTEROL 2.5MG INH SOL UD 3ML (DUONEB)(J7620) NEB (15:33)
[2018-02-15] MEDS: CHLORASEPTIC SPRAY MT (20:43)
[2018-02-15] MEDS: SODIUM CHLORIDE NASAL 0.65% SPRAY BTL (OCEAN) (20:44)
[2018-02-15] MEDS: FLUCONAZOLE 200 MG in APPROPRIATE DILUENT 1 EA IV (20:45)
[2018-02-16] MEDS: NORCO, ANEXSIA 5/325MG TABLET (HYDROcodone/ACETAMINOPHEN) PO ×4 (01:53→21:57)
[2018-02-16] MEDS: IPRATROPIUM 0.5MG/ALBUTEROL 2.5MG INH SOL UD 3ML (DUONEB)(J7620) NEB ×3 (02:23→15:25)
[2018-02-16] MEDS: ONDANSETRON 4MG/2ML VIAL (J2405) IV (05:12)
[2018-02-16] MEDS: HEPARIN SOD (PORCINE) 5000 UNITS/ML VIAL SQ ×3 (05:12→21:57)
[2018-02-16 05:13] LABS: BASO % 0.1 % (0.0-1.0); EOS % 0.1 % (0.0-3.0); HEMATOCRIT 37.1 % (36.0-47.0); HEMOGLOBIN 11.1 g/dl (12.0-15.5); LYMPH # 2.2 10^3/uL (1.5-4.5); LYMPH % 15.3 % (24.0-44.0); MEAN CORPUSCULAR HEMOGLOBIN 28.2 pg (27.0-33.0); MEAN CORPUSCULAR HGB CONC 29.9 g/dl (32.0-36.5); MEAN CORPUSCULAR VOLUME 94.4 fl (80.0-96.0); MONO # 0.8 10^3/uL (0.0-0.8); MONO % 5.3 % (0.0-5.0); NEUTROPHILS # 11.4 10^3/uL (1.8-7.7); NEUTROPHILS % 78.2 % (36.0-66.0); PLATELET COUNT, AUTOMATED 124 10^3/uL (150-450); RED BLOOD COUNT 3.93 10^6/uL (4.00-5.40); RED CELL DISTRIBUTION WIDTH 23.4 % (11.5-14.5); WHITE BLOOD COUNT 14.7 10^3/uL (4.0-10.0)
[2018-02-16 05:31] LABS: ANION GAP 11 MEQ/L (8-16); BLOOD UREA NITROGEN 23 MG/DL (7-18); CALCIUM LEVEL 6.5 MG/DL (8.5-10.1); CARBON DIOXIDE LEVEL 21 MEQ/L (21-32); CHLORIDE LEVEL 110 MEQ/L (98-107); CREATININE FOR GFR 4.87 MG/DL (0.55-1.30); GLOMERULAR FILTRATION RATE 9.8 (>51); GLUCOSE, FASTING 96 MG/DL (70-100); POTASSIUM SERUM 3.3 MEQ/L (3.5-5.1); SODIUM LEVEL 142 MEQ/L (136-145); VANCOMYCIN RANDOM 32.4 UG/ML
[2018-02-16] MEDS ORDERED: VANCOMYCIN INTERMITTENT/PULSE DOSING BY CLINICAL PHARMACIST PER DOSING PROTOCOL XX (06:00)
[2018-02-16 06:06] LABS: RBC BODY FLUID < 2 10^3/uL (<2)
[2018-02-16 06:07] LABS: APPEARANCE, BODY FLUID CLEAR (CLEAR); BF DIFF IF INDICATED? NO (NO); PERITONEAL DIALYSATE FL COLOR COLORLESS (COLORLESS); SOURCE, BODY FLUID PERITONEAL DIALYSATE; WBC BODY FLUID 7 /uL (0-10)
[2018-02-16 07:19] LABS: MAGNESIUM LEVEL 1.8 MG/DL (1.8-2.4)
[2018-02-16] MEDS: PANTOPRAZOLE 40MG INJ (PROTONIX) (C9113) IV (08:14)
[2018-02-16] MEDS: LEVOTHYROXINE 100 MCG (0.1MG) VIAL IV (08:14)
[2018-02-16] MEDS: MEROPENEM INJ 1 GM in APPROPRIATE DILUENT 1 EA IV (08:15)
[2018-02-16] MEDS: KCL 20MEQ in NS 1000ML 1,000 ML IV ×2 (08:15→17:15)
[2018-02-16] MEDS: MAG SULF 1GM/100ML (MAG RUN) 1 GM in APPROPRIATE DILUENT 1 EA IV (11:48)
[2018-02-16] MEDS: GI COCKTAIL 50ML BTL(HYOSCYAMINE/MAALOX/LIDOCAINE VISCOUS)(1:3:1) PO (18:26)
[2018-02-16] MEDS: POTASSIUM CHLORIDE 10 MEQ SR TABLET PO (20:01)
[2018-02-16] MEDS: FLUCONAZOLE 200 MG in APPROPRIATE DILUENT 1 EA IV (21:56)
[2018-02-17] MEDS: IPRATROPIUM 0.5MG/ALBUTEROL 2.5MG INH SOL UD 3ML (DUONEB)(J7620) NEB ×4 (00:04→23:23)
[2018-02-17] MEDS: GI COCKTAIL 50ML BTL(HYOSCYAMINE/MAALOX/LIDOCAINE VISCOUS)(1:3:1) PO ×3 (00:45→18:34)
[2018-02-17] MEDS: KCL 20MEQ in NS 1000ML 1,000 ML IV (03:02)
[2018-02-17] MEDS: NORCO, ANEXSIA 5/325MG TABLET (HYDROcodone/ACETAMINOPHEN) PO ×3 (04:02→18:34)
[2018-02-17] MEDS: HEPARIN SOD (PORCINE) 5000 UNITS/ML VIAL SQ ×2 (05:13→15:41)
[2018-02-17 05:27] LABS: BASO % 0.2 % (0.0-1.0); EOS # 0.1 10^3/uL (0.0-0.50); EOS % 0.4 % (0.0-3.0); HEMATOCRIT 38.7 % (36.0-47.0); HEMOGLOBIN 11.6 g/dl (12.0-15.5); IMMATURE GRANULOCYTE % 0.8 % (0-3.0); LYMPH # 1.6 10^3/uL (1.5-4.5); LYMPH % 13.6 % (24.0-44.0); MEAN CORPUSCULAR HEMOGLOBIN 28.1 pg (27.0-33.0); MEAN CORPUSCULAR VOLUME 93.7 fl (80.0-96.0); MONO # 0.8 10^3/uL (0.0-0.8); MONO % 6.4 % (0.0-5.0); NEUTROPHILS # 9.2 10^3/uL (1.8-7.7); NEUTROPHILS % 78.6 % (36.0-66.0); PLATELET COUNT, AUTOMATED 118 10^3/uL (150-450); RED BLOOD COUNT 4.13 10^6/uL (4.00-5.40); RED CELL DISTRIBUTION WIDTH 24.1 % (11.5-14.5); WHITE BLOOD COUNT 11.7 10^3/uL (4.0-10.0)
[2018-02-17 05:57] LABS: ANION GAP 9 MEQ/L (8-16); BLOOD UREA NITROGEN 20 MG/DL (7-18); CALCIUM LEVEL 6.8 MG/DL (8.5-10.1); CARBON DIOXIDE LEVEL 22 MEQ/L (21-32); CHLORIDE LEVEL 112 MEQ/L (98-107); CREATININE FOR GFR 4.23 MG/DL (0.55-1.30); GLOMERULAR FILTRATION RATE 11.6 (>51); GLUCOSE, FASTING 116 MG/DL (70-100); POTASSIUM SERUM 4.2 MEQ/L (3.5-5.1); SODIUM LEVEL 143 MEQ/L (136-145)
[2018-02-17 08:18] LABS: RBC BODY FLUID < 2 10^3/uL (<2)
[2018-02-17 08:19] LABS: APPEARANCE, BODY FLUID CLEAR (CLEAR); BF DIFF IF INDICATED? NO (NO); PERITONEAL DIALYSATE FL COLOR COLORLESS (COLORLESS); SOURCE, BODY FLUID PERITONEAL DIALYSATE; WBC BODY FLUID 6 /uL (0-10)
[2018-02-17] MEDS: MONTELUKAST 10 MG TAB PO (09:00)
[2018-02-17] MEDS ORDERED: SLF 3 ML SYR IV (09:00)
[2018-02-17] MEDS: PANTOPRAZOLE 40MG INJ (PROTONIX) (C9113) IV (09:14)
[2018-02-17] MEDS: MEROPENEM INJ 1 GM in APPROPRIATE DILUENT 1 EA IV (09:14)
[2018-02-17] MEDS: LEVOTHYROXINE 100 MCG (0.1MG) VIAL IV (09:14)
[2018-02-17] MEDS: DICYCLOMINE 10 MG CAP PO ×2 (11:18→20:40)
[2018-02-17] MEDS: GABAPENTIN 100 MG CAP PO (11:18)
[2018-02-17] MEDS: HEPARIN SOD (PORCINE) 5000 UNITS/ML VIAL PD (11:19)
[2018-02-17 13:13] LABS: ANION GAP 12 MEQ/L (8-16); BLOOD UREA NITROGEN 22 MG/DL (7-18); CALCIUM LEVEL 7.5 MG/DL (8.5-10.1); CARBON DIOXIDE LEVEL 19 MEQ/L (21-32); CHLORIDE LEVEL 108 MEQ/L (98-107); CREATININE FOR GFR 4.58 MG/DL (0.55-1.30); GLOMERULAR FILTRATION RATE 10.5 (>51); GLUCOSE, FASTING 184 MG/DL (70-100); POTASSIUM SERUM 3.9 MEQ/L (3.5-5.1); SODIUM LEVEL 139 MEQ/L (136-145)
[2018-02-17] MEDS: SODIUM CHLORIDE 0.9% INJ 10 ML SYR IV ×2 (15:41→22:00)
[2018-02-17] MEDS: SLF 3 ML SYR IV ×2 (15:41→22:35)
[2018-02-17] MEDS: CETIRIZINE (ZyrTEC) 10 MG TAB PO (20:40)
[2018-02-17] MEDS: GABAPENTIN 300 MG CAP PO (20:40)
[2018-02-17] MEDS ORDERED: HEPARIN SOD (PORCINE) 5000 UNITS/ML VIAL IV (21:45)
[2018-02-17] MEDS: WARFARIN SOD 5 MG TAB PO (22:35)
[2018-02-17 22:39] LABS: HEMATOCRIT 40.3 % (36.0-47.0); HEMOGLOBIN 12.3 g/dl (12.0-15.5); MEAN CORPUSCULAR HEMOGLOBIN 28.5 pg (27.0-33.0); MEAN CORPUSCULAR HGB CONC 30.5 g/dl (32.0-36.5); MEAN CORPUSCULAR VOLUME 93.5 fl (80.0-96.0); PLATELET COUNT, AUTOMATED 111 10^3/uL (150-450); RED BLOOD COUNT 4.31 10^6/uL (4.00-5.40); RED CELL DISTRIBUTION WIDTH 24.2 % (11.5-14.5); WHITE BLOOD COUNT 14.1 10^3/uL (4.0-10.0)
[2018-02-17] MEDS: HEPARIN DRIP 25,000 UNITS in APPROPRIATE DILUENT 1 EA IV (22:43)
[2018-02-18 00:08] LABS: INR 1.18; PARTIAL THROMBOPLASTIN TIME 29.9 SECONDS (26.8-37.9); PROTHROMBIN TIME 15.2 SECONDS (12.4-14.5)
[2018-02-18] MEDS: NORCO, ANEXSIA 5/325MG TABLET (HYDROcodone/ACETAMINOPHEN) PO ×3 (00:32→17:27)
[2018-02-18] MEDS: SLF 3 ML SYR IV (05:44)
[2018-02-18] MEDS: SODIUM CHLORIDE 0.9% INJ 10 ML SYR IV ×3 (05:44→20:26)
[2018-02-18 05:49] LABS: BASO % 0.2 % (0.0-1.0); EOS # 0.4 10^3/uL (0.0-0.50); EOS % 3.1 % (0.0-3.0); HEMOGLOBIN 11.6 g/dl (12.0-15.5); IMMATURE GRANULOCYTE % 0.8 % (0-3.0); LYMPH # 2.4 10^3/uL (1.5-4.5); LYMPH % 18.7 % (24.0-44.0); MEAN CORPUSCULAR HEMOGLOBIN 28.4 pg (27.0-33.0); MEAN CORPUSCULAR HGB CONC 30.5 g/dl (32.0-36.5); MEAN CORPUSCULAR VOLUME 93.1 fl (80.0-96.0); MONO # 0.9 10^3/uL (0.0-0.8); NEUTROPHILS % 70.2 % (36.0-66.0); PLATELET COUNT, AUTOMATED 116 10^3/uL (150-450); RED BLOOD COUNT 4.08 10^6/uL (4.00-5.40); RED CELL DISTRIBUTION WIDTH 24.3 % (11.5-14.5); WHITE BLOOD COUNT 12.8 10^3/uL (4.0-10.0)
[2018-02-18 06:07] LABS: PARTIAL THROMBOPLASTIN TIME 186.7 SECONDS (26.8-37.9)
[2018-02-18 06:37] LABS: ANION GAP 11 MEQ/L (8-16); BLOOD UREA NITROGEN 21 MG/DL (7-18); CALCIUM LEVEL 7.5 MG/DL (8.5-10.1); CARBON DIOXIDE LEVEL 22 MEQ/L (21-32); CHLORIDE LEVEL 108 MEQ/L (98-107); CREATININE FOR GFR 4.41 MG/DL (0.55-1.30); GLUCOSE, FASTING 106 MG/DL (70-100); POTASSIUM SERUM 3.7 MEQ/L (3.5-5.1); SODIUM LEVEL 141 MEQ/L (136-145)
[2018-02-18 06:55] LABS: PARTIAL THROMBOPLASTIN TIME 149.1 SECONDS (26.8-37.9)
[2018-02-18] MEDS: IPRATROPIUM 0.5MG/ALBUTEROL 2.5MG INH SOL UD 3ML (DUONEB)(J7620) NEB ×3 (07:48→23:28)
[2018-02-18 07:57] LABS: RBC BODY FLUID < 2 10^3/uL (<2)
[2018-02-18 07:58] LABS: APPEARANCE, BODY FLUID CLEAR (CLEAR); BF DIFF IF INDICATED? NO (NO); PERITONEAL FL COLOR COLORLESS (COLORLESS); SOURCE, BODY FLUID PERITONEAL; WBC BODY FLUID 8 /uL (0-10)
[2018-02-18] MEDS: OMEPRAZOLE 20 MG CAP PO (08:50)
[2018-02-18] MEDS: GABAPENTIN 100 MG CAP PO (08:50)
[2018-02-18] MEDS: MEROPENEM INJ 1 GM in APPROPRIATE DILUENT 1 EA IV (08:50)
[2018-02-18] MEDS: MONTELUKAST 10 MG TAB PO (08:50)
[2018-02-18] MEDS: LEVOTHYROXINE 100 MCG (0.1MG) VIAL IV (08:50)
[2018-02-18] MEDS: APIXABAN 2.5 MG TAB (ELIQUIS) PO ×2 (12:22→20:24)
[2018-02-18] MEDS: GI COCKTAIL 50ML BTL(HYOSCYAMINE/MAALOX/LIDOCAINE VISCOUS)(1:3:1) PO (13:47)
[2018-02-18 16:44] LABS: C REACTIVE PROTEIN QUANTITATIV 8.74 MG/DL (0.00-0.30)
[2018-02-18] MEDS: DICYCLOMINE 10 MG CAP PO (19:02)
[2018-02-18] MEDS: POTASSIUM CHLORIDE 10 MEQ SR TABLET PO (20:25)
[2018-02-18] MEDS: GABAPENTIN 300 MG CAP PO (20:26)
[2018-02-18] MEDS: CETIRIZINE (ZyrTEC) 10 MG TAB PO (20:26)
[2018-02-19] MEDS: NORCO, ANEXSIA 5/325MG TABLET (HYDROcodone/ACETAMINOPHEN) PO ×3 (04:54→21:42)
[2018-02-19 05:06] LABS: HEMATOCRIT 38.4 % (36.0-47.0); HEMOGLOBIN 11.9 g/dl (12.0-15.5); MEAN CORPUSCULAR HEMOGLOBIN 28.6 pg (27.0-33.0); MEAN CORPUSCULAR VOLUME 92.3 fl (80.0-96.0); PLATELET COUNT, AUTOMATED 125 10^3/uL (150-450); RED BLOOD COUNT 4.16 10^6/uL (4.00-5.40); RED CELL DISTRIBUTION WIDTH 23.7 % (11.5-14.5); WHITE BLOOD COUNT 12.3 10^3/uL (4.0-10.0)
[2018-02-19 05:38] LABS: ALBUMIN 1.1 GM/DL (3.2-5.2); ALBUMIN/GLOBULIN RATIO 0.42 (1.00-1.93); ALKALINE PHOSPHATASE 118 U/L (45-117); ALT/SGPT 9 U/L (12-78); ANION GAP 12 MEQ/L (8-16); AST/SGOT 12 U/L (7-37); BILIRUBIN,TOTAL 0.4 MG/DL (0.2-1.0); BLOOD UREA NITROGEN 21 MG/DL (7-18); CALCIUM LEVEL 7.3 MG/DL (8.5-10.1); CARBON DIOXIDE LEVEL 23 MEQ/L (21-32); CHLORIDE LEVEL 106 MEQ/L (98-107); CREATININE FOR GFR 4.54 MG/DL (0.55-1.30); GLOMERULAR FILTRATION RATE 10.7 (>51); GLUCOSE, FASTING 114 MG/DL (70-100); MAGNESIUM LEVEL 2.1 MG/DL (1.8-2.4); SODIUM LEVEL 141 MEQ/L (136-145); TOTAL PROTEIN 3.7 GM/DL (6.4-8.2)
[2018-02-19] MEDS: SODIUM CHLORIDE 0.9% INJ 10 ML SYR IV ×4 (06:00→21:23)
[2018-02-19 07:18] LABS: RBC BODY FLUID < 2 10^3/uL (<2)
[2018-02-19 07:19] LABS: APPEARANCE, BODY FLUID CLEAR (CLEAR); BF DIFF IF INDICATED? NO (NO); PERITONEAL FL COLOR COLORLESS (COLORLESS); SOURCE, BODY FLUID PERITONEAL; WBC BODY FLUID 9 /uL (0-10)
[2018-02-19] MEDS: IPRATROPIUM 0.5MG/ALBUTEROL 2.5MG INH SOL UD 3ML (DUONEB)(J7620) NEB ×3 (08:32→23:45)
[2018-02-19 08:45] LABS: LACTIC ACID SEPSIS PROTOCOL 3.6 MMOL/L (0.4-2.0)
[2018-02-19] MEDS ORDERED: ISOVUE-370 76% 100ML VIAL (Q9967) As Ordered (10:10)
[2018-02-19] MEDS: LEVOTHYROXINE 100 MCG (0.1MG) VIAL IV (10:57)
[2018-02-19] MEDS: HEPARIN 1,000 UNITS/ML 10ML VIAL (FOR RADIOLOGY& DIALYSIS ONLY) XX (11:35)
[2018-02-19] MEDS: APIXABAN 2.5 MG TAB (ELIQUIS) PO ×2 (11:40→21:23)
[2018-02-19] MEDS: MONTELUKAST 10 MG TAB PO (11:40)
[2018-02-19] MEDS: MEROPENEM INJ 1 GM in APPROPRIATE DILUENT 1 EA IV (11:40)
[2018-02-19] MEDS: GABAPENTIN 100 MG CAP PO (11:40)
[2018-02-19] MEDS: OMEPRAZOLE 20 MG CAP PO (11:40)
[2018-02-19] MEDS: DICYCLOMINE 10 MG CAP PO (11:48)
[2018-02-19] MEDS: LEVOTHYROXINE 25MCG TABLET (0.025MG) PO (11:48)
[2018-02-19 11:57] LABS: TYPE AND SCREEN 1
[2018-02-19 18:42] LABS: LACTIC ACID SEPSIS PROTOCOL 4.3 MMOL/L (0.4-2.0)
[2018-02-19] MEDS: COSYNTROPIN 0.25 MG/ML VIAL (J0834 PER 0.25MG) IV (20:36)
[2018-02-19 21:17] LABS: CORTISOL BASELINE 10.9 UG/DL (4.3-22.4)
[2018-02-19] MEDS: CETIRIZINE (ZyrTEC) 10 MG TAB PO (21:23)
[2018-02-19] MEDS: GABAPENTIN 300 MG CAP PO (21:23)
[2018-02-19 22:11] LABS: LACTIC ACID SEPSIS PROTOCOL 3.4 MMOL/L (0.4-2.0)
[2018-02-19 22:17] LABS: CORTISOL 30 MINUTES 31.5 UG/DL
[2018-02-20 05:41] LABS: HEMATOCRIT 32.8 % (36.0-47.0); MEAN CORPUSCULAR HGB CONC 30.2 g/dl (32.0-36.5); MEAN CORPUSCULAR VOLUME 92.9 fl (80.0-96.0); PLATELET COUNT, AUTOMATED 133 10^3/uL (150-450); RED BLOOD COUNT 3.53 10^6/uL (4.00-5.40); RED CELL DISTRIBUTION WIDTH 23.6 % (11.5-14.5); WHITE BLOOD COUNT 6.8 10^3/uL (4.0-10.0)
[2018-02-20 05:51] LABS: HEMOGLOBIN 9.9 g/dl (12.0-15.5)
[2018-02-20] MEDS: NORCO, ANEXSIA 5/325MG TABLET (HYDROcodone/ACETAMINOPHEN) PO ×3 (05:58→20:56)
[2018-02-20] MEDS: LEVOTHYROXINE 25MCG TABLET (0.025MG) PO (05:59)
[2018-02-20] MEDS: SODIUM CHLORIDE 0.9% INJ 10 ML SYR IV ×3 (06:00→20:45)
[2018-02-20 06:24] LABS: ALBUMIN 1.7 GM/DL (3.2-5.2); ALBUMIN/GLOBULIN RATIO 0.77 (1.00-1.93); ALKALINE PHOSPHATASE 86 U/L (45-117); ALT/SGPT 8 U/L (12-78); ANION GAP 10 MEQ/L (8-16); AST/SGOT 9 U/L (7-37); BILIRUBIN,TOTAL 0.5 MG/DL (0.2-1.0); BLOOD UREA NITROGEN 21 MG/DL (7-18); CALCIUM LEVEL 7.7 MG/DL (8.5-10.1); CARBON DIOXIDE LEVEL 25 MEQ/L (21-32); CHLORIDE LEVEL 104 MEQ/L (98-107); CREATININE FOR GFR 4.52 MG/DL (0.55-1.30); GLOMERULAR FILTRATION RATE 10.7 (>51); GLUCOSE, FASTING 122 MG/DL (70-100); MAGNESIUM LEVEL 2.4 MG/DL (1.8-2.4); POTASSIUM SERUM 3.9 MEQ/L (3.5-5.1); SODIUM LEVEL 139 MEQ/L (136-145); TOTAL PROTEIN 3.9 GM/DL (6.4-8.2)
[2018-02-20] MEDS: IPRATROPIUM 0.5MG/ALBUTEROL 2.5MG INH SOL UD 3ML (DUONEB)(J7620) NEB ×3 (07:28→23:42)
[2018-02-20 08:36] LABS: TYPE AND SCREEN 1
[2018-02-20] MEDS: NICOTINE 21MG/24HR 1 EA TRANSDERMAL TD (09:00)
[2018-02-20] MEDS: OMEPRAZOLE 20 MG CAP PO (09:17)
[2018-02-20] MEDS: MONTELUKAST 10 MG TAB PO (09:17)
[2018-02-20] MEDS: GABAPENTIN 100 MG CAP PO (09:17)
[2018-02-20] MEDS: APIXABAN 2.5 MG TAB (ELIQUIS) PO ×2 (09:17→20:43)
[2018-02-20] MEDS: MEROPENEM INJ 1 GM in APPROPRIATE DILUENT 1 EA IV (09:18)
[2018-02-20 09:36] LABS: CORTISOL AM 23.7 UG/DL (4.3-22.4)
[2018-02-20 09:37] LABS: CORTISOL 60 MINUTES 30.9 UG/DL
[2018-02-20] MEDS: ALPRAZolam 0.25 MG TAB PO (12:05)
[2018-02-20] MEDS: FLUoxetine 10 MG CAP PO (14:26)
[2018-02-20] MEDS: MIDODRINE 5 MG TAB PO ×2 (14:26→17:50)
[2018-02-20] MEDS ORDERED: SODIUM CHLORIDE 0.9% INJ 10 ML SYR IV ×2 (17:45→22:00)
[2018-02-20] MEDS: GABAPENTIN 300 MG CAP PO (20:43)
[2018-02-20] MEDS: CETIRIZINE (ZyrTEC) 10 MG TAB PO (20:43)
[2018-02-20 23:52] LABS: TYPE AND SCREEN 1
[2018-02-21 05:59] LABS: HEMATOCRIT 29.6 % (36.0-47.0); HEMOGLOBIN 9.2 g/dl (12.0-15.5); MEAN CORPUSCULAR HEMOGLOBIN 29.1 pg (27.0-33.0); MEAN CORPUSCULAR HGB CONC 31.1 g/dl (32.0-36.5); MEAN CORPUSCULAR VOLUME 93.7 fl (80.0-96.0); PLATELET COUNT, AUTOMATED 137 10^3/uL (150-450); RED BLOOD COUNT 3.16 10^6/uL (4.00-5.40); RED CELL DISTRIBUTION WIDTH 23.4 % (11.5-14.5); WHITE BLOOD COUNT 6.9 10^3/uL (4.0-10.0)
[2018-02-21] MEDS: SODIUM CHLORIDE 0.9% INJ 10 ML SYR IV ×3 (06:00→21:06)
[2018-02-21] MEDS: LEVOTHYROXINE 25MCG TABLET (0.025MG) PO (06:06)
[2018-02-21] MEDS: NORCO, ANEXSIA 5/325MG TABLET (HYDROcodone/ACETAMINOPHEN) PO ×3 (06:07→23:42)
[2018-02-21 06:27] LABS: ALBUMIN 2.2 GM/DL (3.2-5.2); ALBUMIN/GLOBULIN RATIO 1.22 (1.00-1.93); ALKALINE PHOSPHATASE 75 U/L (45-117); ALT/SGPT 8 U/L (12-78); ANION GAP 11 MEQ/L (8-16); AST/SGOT 14 U/L (7-37); BILIRUBIN,TOTAL 0.8 MG/DL (0.2-1.0); BLOOD UREA NITROGEN 21 MG/DL (7-18); CALCIUM LEVEL 7.7 MG/DL (8.5-10.1); CARBON DIOXIDE LEVEL 25 MEQ/L (21-32); CHLORIDE LEVEL 104 MEQ/L (98-107); CREATININE FOR GFR 4.53 MG/DL (0.55-1.30); GLOMERULAR FILTRATION RATE 10.7 (>51); GLUCOSE, FASTING 83 MG/DL (70-100); MAGNESIUM LEVEL 1.8 MG/DL (1.8-2.4); POTASSIUM SERUM 3.3 MEQ/L (3.5-5.1); SODIUM LEVEL 140 MEQ/L (136-145)
[2018-02-21] MEDS: MIDODRINE 5 MG TAB PO ×3 (08:09→16:31)
[2018-02-21] MEDS: POTASSIUM CHLORIDE 10 MEQ SR TABLET PO (08:09)
[2018-02-21] MEDS: IPRATROPIUM 0.5MG/ALBUTEROL 2.5MG INH SOL UD 3ML (DUONEB)(J7620) NEB ×3 (08:12→23:57)
[2018-02-21 08:23] LABS: TYPE AND SCREEN 1
[2018-02-21] MEDS: NICOTINE 21MG/24HR 1 EA TRANSDERMAL TD (09:00)
[2018-02-21] MEDS: MONTELUKAST 10 MG TAB PO (09:11)
[2018-02-21] MEDS: FLUoxetine 10 MG CAP PO (09:11)
[2018-02-21] MEDS: GABAPENTIN 100 MG CAP PO (09:11)
[2018-02-21] MEDS: MEROPENEM INJ 1 GM in APPROPRIATE DILUENT 1 EA IV (09:11)
[2018-02-21] MEDS: OMEPRAZOLE 20 MG CAP PO (09:12)
[2018-02-21] MEDS: APIXABAN 2.5 MG TAB (ELIQUIS) PO ×2 (09:12→21:07)
[2018-02-21 16:32] LABS: TYPE AND SCREEN 1
[2018-02-21] MEDS: GABAPENTIN 300 MG CAP PO (21:07)
[2018-02-21] MEDS: CETIRIZINE (ZyrTEC) 10 MG TAB PO (21:07)
[2018-02-21 23:29] LABS: TYPE AND SCREEN 1
[2018-02-22 05:21] LABS: HEMATOCRIT 30.2 % (36.0-47.0); HEMOGLOBIN 9.2 g/dl (12.0-15.5); MEAN CORPUSCULAR HEMOGLOBIN 28.6 pg (27.0-33.0); MEAN CORPUSCULAR HGB CONC 30.5 g/dl (32.0-36.5); MEAN CORPUSCULAR VOLUME 93.8 fl (80.0-96.0); PLATELET COUNT, AUTOMATED 153 10^3/uL (150-450); RED BLOOD COUNT 3.22 10^6/uL (4.00-5.40); RED CELL DISTRIBUTION WIDTH 22.9 % (11.5-14.5); WHITE BLOOD COUNT 6.5 10^3/uL (4.0-10.0)
[2018-02-22 05:47] LABS: ALBUMIN 2.4 GM/DL (3.2-5.2); ALKALINE PHOSPHATASE 70 U/L (45-117); ALT/SGPT 8 U/L (12-78); ANION GAP 9 MEQ/L (8-16); AST/SGOT 10 U/L (7-37); BILIRUBIN,TOTAL 0.9 MG/DL (0.2-1.0); BLOOD UREA NITROGEN 18 MG/DL (7-18); CALCIUM LEVEL 7.7 MG/DL (8.5-10.1); CARBON DIOXIDE LEVEL 26 MEQ/L (21-32); CHLORIDE LEVEL 103 MEQ/L (98-107); CREATININE FOR GFR 4.44 MG/DL (0.55-1.30); GLOMERULAR FILTRATION RATE 10.9 (>51); GLUCOSE, FASTING 82 MG/DL (70-100); MAGNESIUM LEVEL 1.7 MG/DL (1.8-2.4); POTASSIUM SERUM 3.3 MEQ/L (3.5-5.1); SODIUM LEVEL 138 MEQ/L (136-145); TOTAL PROTEIN 4.4 GM/DL (6.4-8.2)
[2018-02-22] MEDS: SODIUM CHLORIDE 0.9% INJ 10 ML SYR IV ×2 (05:55→15:17)
[2018-02-22] MEDS: LEVOTHYROXINE 25MCG TABLET (0.025MG) PO (05:55)
[2018-02-22 07:32] LABS: TYPE AND SCREEN 1
[2018-02-22] MEDS: IPRATROPIUM 0.5MG/ALBUTEROL 2.5MG INH SOL UD 3ML (DUONEB)(J7620) NEB ×2 (07:47→16:00)
[2018-02-22] MEDS: GABAPENTIN 100 MG CAP PO (08:28)
[2018-02-22] MEDS: MIDODRINE 5 MG TAB PO ×2 (08:28→14:00)
[2018-02-22] MEDS: MAG SULF 1GM/100ML (MAG RUN) 1 GM in APPROPRIATE DILUENT 1 EA IV (08:29)
[2018-02-22] MEDS: MONTELUKAST 10 MG TAB PO (08:29)
[2018-02-22] MEDS: OMEPRAZOLE 20 MG CAP PO (08:29)
[2018-02-22] MEDS: APIXABAN 2.5 MG TAB (ELIQUIS) PO (08:29)
[2018-02-22] MEDS: FLUoxetine 10 MG CAP PO (08:29)
[2018-02-22] MEDS: POTASSIUM CHLORIDE 10 MEQ SR TABLET PO (08:29)
[2018-02-22] MEDS: NICOTINE 21MG/24HR 1 EA TRANSDERMAL TD (08:30)
[2018-02-22] MEDS: NORCO, ANEXSIA 5/325MG TABLET (HYDROcodone/ACETAMINOPHEN) PO (10:15)
== END 2018-02-22 17:33 | disposition home or self-care (01) | DRG 720 ==
LOC: M PCU 02-19 13:47 → M ICU 02-19 19:59 → M ED 11:36 → M ED INP 14:58 → M ICU 16:33
PROC: 05HM33Z Insertion of Infusion Device into Right Internal Jugular Vein, Percutaneous Approach (ICD-10-PCS; principal; 2018-02-15)
DX: A41.9 Sepsis, unspecified organism (principal); J86.9 Pyothorax without fistula; R65.21 Severe sepsis with septic shock; G93.41 Metabolic encephalopathy; Q79.59 Other congenital malformations of abdominal wall; E46 Unspecified protein-calorie malnutrition; E87.2 Acidosis; N18.6 End stage renal disease; I12.0 Hypertensive chronic kidney disease with stage 5 chronic kidney disease or end stage renal disease; I82.621 Acute embolism and thrombosis of deep veins of right upper extremity; I82.A11 Acute embolism and thrombosis of right axillary vein; J15.9 Unspecified bacterial pneumonia; D69.6 Thrombocytopenia, unspecified; K76.89 Other specified diseases of liver; K56.7 Ileus, unspecified; E83.42 Hypomagnesemia; Q61.2 Polycystic kidney, adult type; G62.9 Polyneuropathy, unspecified; I82.611 Acute embolism and thrombosis of superficial veins of right upper extremity; E87.70 Fluid overload, unspecified; E03.9 Hypothyroidism, unspecified; E87.6 Hypokalemia; M54.5 Low back pain; K21.9 Gastro-esophageal reflux disease without esophagitis; M10.9 Gout, unspecified; F32.9 Major depressive disorder, single episode, unspecified; Z79.52 Long term (current) use of systemic steroids; Z79.899 Other long term (current) drug therapy; J45.909 Unspecified asthma, uncomplicated; I78.1 Nevus, non-neoplastic; Z88.6 Allergy status to analgesic agent; Z88.8 Allergy status to other drugs, medicaments and biological substances; Z88.0 Allergy status to penicillin; Z88.5 Allergy status to narcotic agent; F17.210 Nicotine dependence, cigarettes, uncomplicated; R19.7 Diarrhea, unspecified; D63.1 Anemia in chronic kidney disease

== ENCOUNTER → 2018-03-25 | Outpatient (REF) | payer OTHER ==
[2018-03-25 17:38] LABS: HEMATOCRIT 50.8 % (36.0-47.0); MEAN CORPUSCULAR HEMOGLOBIN 28.4 pg (27.0-33.0); MEAN CORPUSCULAR HGB CONC 29.5 g/dl (32.0-36.5); MEAN CORPUSCULAR VOLUME 96.2 fl (80.0-96.0); PLATELET COUNT, AUTOMATED 393 10^3/uL (150-450); RED BLOOD COUNT 5.28 10^6/uL (4.00-5.40); RED CELL DISTRIBUTION WIDTH 19.9 % (11.5-14.5); WHITE BLOOD COUNT 21.4 10^3/uL (4.0-10.0)
[2018-03-25 17:42] LABS: ALBUMIN/GLOBULIN RATIO 0.59 (1.00-1.93); ALKALINE PHOSPHATASE 118 U/L (45-117); ALT/SGPT 13 U/L (12-78); ANION GAP 16 MEQ/L (8-16); AST/SGOT 24 U/L (7-37); BILIRUBIN,TOTAL 0.6 MG/DL (0.2-1.0); BLOOD UREA NITROGEN 21 MG/DL (7-18); CALCIUM LEVEL 8.6 MG/DL (8.5-10.1); CARBON DIOXIDE LEVEL 23 MEQ/L (21-32); CHLORIDE LEVEL 96 MEQ/L (98-107); CREATININE FOR GFR 5.83 MG/DL (0.55-1.30); GLUCOSE, FASTING 154 MG/DL (70-100); POTASSIUM SERUM 4.1 MEQ/L (3.5-5.1); SODIUM LEVEL 135 MEQ/L (136-145); TOTAL PROTEIN 5.4 GM/DL (6.4-8.2)
== END ==
LOC: M SFHCLERA 14:02
DX: E03.9 Hypothyroidism, unspecified (principal); R19.7 Diarrhea, unspecified
CPT/HCPCS: 84443

== ENCOUNTER 2018-03-26 16:11 | Inpatient (IN) | payer OTHER ==
[2018-03-26 17:20] LABS: HEMATOCRIT 47.3 % (36.0-47.0); HEMOGLOBIN 14.2 g/dl (12.0-15.5); MEAN CORPUSCULAR HEMOGLOBIN 28.7 pg (27.0-33.0); MEAN CORPUSCULAR VOLUME 95.6 fl (80.0-96.0); PLATELET COUNT, AUTOMATED 444 10^3/uL (150-450); RED BLOOD COUNT 4.95 10^6/uL (4.00-5.40); RED CELL DISTRIBUTION WIDTH 20.2 % (11.5-14.5)
[2018-03-26 17:23] LABS: ADD MANUAL DIFFER YES; DIFF SLIDE NUMBER 378; POSITIVE DIFF POS FLAG
[2018-03-26] MEDS ORDERED: VANCOMYCIN HCL IV ×2 (17:30→19:00)
[2018-03-26] MEDS ORDERED: FLUID PLACE HOLDER IV (17:30)
[2018-03-26 17:39] LABS: ALBUMIN 1.9 GM/DL (3.2-5.2); ALBUMIN/GLOBULIN RATIO 0.53 (1.00-1.93); ALKALINE PHOSPHATASE 118 U/L (45-117); ALT/SGPT 12 U/L (12-78); ANION GAP 16 MEQ/L (8-16); AST/SGOT 14 U/L (7-37); BILIRUBIN,DIRECT 0.2 MG/DL (0.0-0.2); BILIRUBIN,TOTAL 0.5 MG/DL (0.2-1.0); BLOOD UREA NITROGEN 22 MG/DL (7-18); CALCIUM LEVEL 8.9 MG/DL (8.5-10.1); CARBON DIOXIDE LEVEL 25 MEQ/L (21-32); CHLORIDE LEVEL 95 MEQ/L (98-107); CREATININE FOR GFR 6.02 MG/DL (0.55-1.30); GLOMERULAR FILTRATION RATE 7.7 (>51); GLUCOSE, FASTING 140 MG/DL (70-100); LIPASE 78 U/L (73-393); POTASSIUM SERUM 3.4 MEQ/L (3.5-5.1); SODIUM LEVEL 136 MEQ/L (136-145); TOTAL PROTEIN 5.5 GM/DL (6.4-8.2)
[2018-03-26 17:59] LABS: ANISOCYTOSIS 3+; ATYPICAL LYMPH 2 % (0-5); LYMPHOCYTES 22 % (16-52); MONOCYTES 1 % (0-8); NEUTROPHILS 75 % (35-75); PLATELET ESTIMATE INCREASED (NORMAL)
[2018-03-26 18:00] LABS: PLATELET CLUMPS SMALL AMT; POIKILOCYTOSIS 1+; POLYCHROMASIA 1+
[2018-03-26] MEDS: traMADol 50 MG TAB PO ×2 (18:02→22:30)
[2018-03-26] MEDS ORDERED: D5W MINI IV (19:00)
[2018-03-26] MEDS: VANCOMYCIN ORAL SOL 250MG/5ML ORAL SYRINGE PO ×2 (19:20→19:21)
[2018-03-26] MEDS ORDERED: FIDAXOMICIN 200 MG TAB (DIFICID) PO (21:00)
[2018-03-26] MEDS ORDERED: ONDANSETRON 4 MG TAB (S0181) PO (21:30)
[2018-03-26] MEDS ORDERED: ONDANSETRON 4MG/2ML VIAL (J2405) IV (21:30)
[2018-03-26] MEDS: CETIRIZINE (ZyrTEC) 10 MG TAB PO (22:30)
[2018-03-26] MEDS: APIXABAN 2.5 MG TAB (ELIQUIS) PO (22:30)
[2018-03-26] MEDS: POTASSIUM CHLORIDE 10 MEQ SR TABLET PO (22:30)
[2018-03-26] MEDS: GABAPENTIN 300 MG CAP PO (22:30)
[2018-03-27] MEDS: VANCOMYCIN ORAL SOL 250MG/5ML ORAL SYRINGE PO ×4 (01:55→23:46)
[2018-03-27] MEDS: PERCOCET 5MG/325MG TAB PO (01:55)
[2018-03-27] MEDS: ACETAMINOPHEN TAB 650MG DOSE (2X325MG) PO (06:44)
[2018-03-27] MEDS: LEVOTHYROXINE 25MCG TABLET (0.025MG) PO (06:44)
[2018-03-27] MEDS ORDERED: MIDODRINE 5 MG TAB PO ×2 (08:00→18:00)
[2018-03-27] MEDS: IPRATROPIUM 0.5MG/ALBUTEROL 2.5MG INH SOL UD 3ML (DUONEB)(J7620) INH ×2 (08:37→19:53)
[2018-03-27] MEDS: ADVAIR HFA 230/21MCG INHALER INH ×2 (08:37→08:42)
[2018-03-27] MEDS: FLUoxetine 10 MG CAP PO (09:39)
[2018-03-27] MEDS: GABAPENTIN 100 MG CAP PO (09:39)
[2018-03-27] MEDS: traMADol 50 MG TAB PO ×2 (09:39→22:21)
[2018-03-27] MEDS: MONTELUKAST 10 MG TAB PO (09:39)
[2018-03-27] MEDS: OMEPRAZOLE 20 MG CAP PO (09:39)
[2018-03-27] MEDS: APIXABAN 2.5 MG TAB (ELIQUIS) PO ×2 (09:40→22:21)
[2018-03-27 10:05] LABS: RBC BODY FLUID < 2 10^3/uL (<2)
[2018-03-27 10:09] LABS: APPEARANCE, BODY FLUID CLEAR (CLEAR); BF DIFF IF INDICATED? NO (NO); PERITONEAL DIALYSATE FL COLOR COLORLESS (COLORLESS); SOURCE, BODY FLUID PERITONEAL DIALYSATE; WBC BODY FLUID 5 /uL (0-10)
[2018-03-27 10:52] LABS: BASO # 0.1 10^3/uL (0.0-0.2); BASO % 0.5 % (0.0-1.0); EOS # 0.2 10^3/uL (0.0-0.50); HEMATOCRIT 44.4 % (36.0-47.0); IMMATURE GRANULOCYTE % 0.7 % (0-3.0); LYMPH # 3.1 10^3/uL (1.5-4.5); LYMPH % 18.2 % (24.0-44.0); MEAN CORPUSCULAR HEMOGLOBIN 28.7 pg (27.0-33.0); MEAN CORPUSCULAR HGB CONC 29.3 g/dl (32.0-36.5); MONO # 0.8 10^3/uL (0.0-0.8); MONO % 4.7 % (0.0-5.0); NEUTROPHILS # 12.6 10^3/uL (1.8-7.7); NEUTROPHILS % 74.9 % (36.0-66.0); RED BLOOD COUNT 4.53 10^6/uL (4.00-5.40); RED CELL DISTRIBUTION WIDTH 20.3 % (11.5-14.5); WHITE BLOOD COUNT 16.8 10^3/uL (4.0-10.0)
[2018-03-27 10:56] LABS: PLATELET COUNT, AUTOMATED 328 10^3/uL (150-450)
[2018-03-27 11:47] LABS: ANION GAP 11 MEQ/L (8-16); BLOOD UREA NITROGEN 23 MG/DL (7-18); CALCIUM LEVEL 8.4 MG/DL (8.5-10.1); CARBON DIOXIDE LEVEL 29 MEQ/L (21-32); CHLORIDE LEVEL 99 MEQ/L (98-107); CREATININE FOR GFR 6.54 MG/DL (0.55-1.30); GLUCOSE, FASTING 200 MG/DL (70-100); MAGNESIUM LEVEL 2.5 MG/DL (1.8-2.4); POTASSIUM SERUM 3.4 MEQ/L (3.5-5.1); SODIUM LEVEL 139 MEQ/L (136-145)
[2018-03-27] MEDS: MIDODRINE 5 MG TAB PO ×2 (12:37→16:15)
[2018-03-27] MEDS: SODIUM CHLORIDE 0.9% 1000 ML IV (20:30)
[2018-03-27] MEDS: FEBUXOSTAT 40 MG TABLET (ULORIC) PO (22:20)
[2018-03-27] MEDS: POTASSIUM CHLORIDE 10 MEQ SR TABLET PO (22:20)
[2018-03-27] MEDS: LACTOBACILLUS ACIDOPHILUS CAP (BACID) PO (22:20)
[2018-03-27] MEDS: CETIRIZINE (ZyrTEC) 10 MG TAB PO (22:21)
[2018-03-27] MEDS: GABAPENTIN 300 MG CAP PO (22:21)
[2018-03-28] MEDS: LEVOTHYROXINE 25MCG TABLET (0.025MG) PO (06:03)
[2018-03-28] MEDS: VANCOMYCIN ORAL SOL 250MG/5ML ORAL SYRINGE PO ×3 (06:03→18:04)
[2018-03-28 06:15] LABS: BASO # 0.1 10^3/uL (0.0-0.2); BASO % 0.7 % (0.0-1.0); EOS # 0.2 10^3/uL (0.0-0.50); HEMATOCRIT 41.9 % (36.0-47.0); HEMOGLOBIN 12.2 g/dl (12.0-15.5); IMMATURE GRANULOCYTE % 0.4 % (0-3.0); LYMPH # 3.4 10^3/uL (1.5-4.5); LYMPH % 22.5 % (24.0-44.0); MEAN CORPUSCULAR HEMOGLOBIN 27.9 pg (27.0-33.0); MEAN CORPUSCULAR HGB CONC 29.1 g/dl (32.0-36.5); MEAN CORPUSCULAR VOLUME 95.9 fl (80.0-96.0); MONO # 0.9 10^3/uL (0.0-0.8); NEUTROPHILS # 10.6 10^3/uL (1.8-7.7); NEUTROPHILS % 69.4 % (36.0-66.0); PLATELET COUNT, AUTOMATED 326 10^3/uL (150-450); RED BLOOD COUNT 4.37 10^6/uL (4.00-5.40); RED CELL DISTRIBUTION WIDTH 20.2 % (11.5-14.5); WHITE BLOOD COUNT 15.3 10^3/uL (4.0-10.0)
[2018-03-28 06:31] LABS: ANION GAP 11 MEQ/L (8-16); BLOOD UREA NITROGEN 19 MG/DL (7-18); CALCIUM LEVEL 7.7 MG/DL (8.5-10.1); CARBON DIOXIDE LEVEL 28 MEQ/L (21-32); CHLORIDE LEVEL 99 MEQ/L (98-107); GLOMERULAR FILTRATION RATE 7.9 (>51); GLUCOSE, FASTING 119 MG/DL (70-100); MAGNESIUM LEVEL 2.1 MG/DL (1.8-2.4); POTASSIUM SERUM 3.1 MEQ/L (3.5-5.1); SODIUM LEVEL 138 MEQ/L (136-145)
[2018-03-28] MEDS: IPRATROPIUM 0.5MG/ALBUTEROL 2.5MG INH SOL UD 3ML (DUONEB)(J7620) INH ×2 (08:00→19:50)
[2018-03-28] MEDS: ADVAIR HFA 230/21MCG INHALER INH ×2 (08:16→19:47)
[2018-03-28] MEDS: APIXABAN 2.5 MG TAB (ELIQUIS) PO ×2 (08:20→20:09)
[2018-03-28] MEDS: MIDODRINE 5 MG TAB PO ×3 (08:21→20:09)
[2018-03-28] MEDS: traMADol 50 MG TAB PO ×2 (08:21→20:10)
[2018-03-28] MEDS: FLUoxetine 10 MG CAP PO (08:21)
[2018-03-28] MEDS: OMEPRAZOLE 20 MG CAP PO (08:21)
[2018-03-28] MEDS: MONTELUKAST 10 MG TAB PO (08:21)
[2018-03-28] MEDS: GABAPENTIN 100 MG CAP PO (08:21)
[2018-03-28] MEDS: LACTOBACILLUS ACIDOPHILUS CAP (BACID) PO ×2 (08:21→20:09)
[2018-03-28] MEDS: POTASSIUM CHLORIDE 10 MEQ SR TABLET PO ×2 (08:22→20:09)
[2018-03-28] MEDS: GABAPENTIN 300 MG CAP PO (20:09)
[2018-03-28] MEDS: CETIRIZINE (ZyrTEC) 10 MG TAB PO (20:09)
[2018-03-29] MEDS: VANCOMYCIN ORAL SOL 250MG/5ML ORAL SYRINGE PO ×2 (00:21→06:28)
[2018-03-29 06:13] LABS: BASO # 0.1 10^3/uL (0.0-0.2); BASO % 0.7 % (0.0-1.0); EOS # 0.1 10^3/uL (0.0-0.50); EOS % 0.8 % (0.0-3.0); HEMATOCRIT 43.4 % (36.0-47.0); HEMOGLOBIN 12.7 g/dl (12.0-15.5); IMMATURE GRANULOCYTE % 0.3 % (0-3.0); LYMPH # 3.4 10^3/uL (1.5-4.5); LYMPH % 24.8 % (24.0-44.0); MEAN CORPUSCULAR HGB CONC 29.3 g/dl (32.0-36.5); MEAN CORPUSCULAR VOLUME 95.6 fl (80.0-96.0); MONO # 0.9 10^3/uL (0.0-0.8); MONO % 6.8 % (0.0-5.0); NEUTROPHILS # 9.2 10^3/uL (1.8-7.7); NEUTROPHILS % 66.6 % (36.0-66.0); PLATELET COUNT, AUTOMATED 328 10^3/uL (150-450); RED BLOOD COUNT 4.54 10^6/uL (4.00-5.40); WHITE BLOOD COUNT 13.8 10^3/uL (4.0-10.0)
[2018-03-29] MEDS: LEVOTHYROXINE 25MCG TABLET (0.025MG) PO (06:28)
[2018-03-29 06:32] LABS: ANION GAP 11 MEQ/L (8-16); BLOOD UREA NITROGEN 17 MG/DL (7-18); CALCIUM LEVEL 7.8 MG/DL (8.5-10.1); CARBON DIOXIDE LEVEL 26 MEQ/L (21-32); CHLORIDE LEVEL 100 MEQ/L (98-107); CREATININE FOR GFR 5.45 MG/DL (0.55-1.30); GLOMERULAR FILTRATION RATE 8.6 (>51); GLUCOSE, FASTING 108 MG/DL (70-100); SODIUM LEVEL 137 MEQ/L (136-145)
[2018-03-29] MEDS: IPRATROPIUM 0.5MG/ALBUTEROL 2.5MG INH SOL UD 3ML (DUONEB)(J7620) INH (08:00)
[2018-03-29] MEDS: ADVAIR HFA 230/21MCG INHALER INH (08:07)
[2018-03-29] MEDS: APIXABAN 2.5 MG TAB (ELIQUIS) PO (08:13)
[2018-03-29] MEDS: OMEPRAZOLE 20 MG CAP PO (08:13)
[2018-03-29] MEDS: FLUoxetine 10 MG CAP PO (08:13)
[2018-03-29] MEDS: LACTOBACILLUS ACIDOPHILUS CAP (BACID) PO (08:14)
[2018-03-29] MEDS: traMADol 50 MG TAB PO (08:14)
[2018-03-29] MEDS: GABAPENTIN 100 MG CAP PO (08:14)
[2018-03-29] MEDS: MONTELUKAST 10 MG TAB PO (08:14)
[2018-03-29] MEDS: MIDODRINE 5 MG TAB PO (08:16)
== END 2018-03-29 10:18 | disposition home or self-care (01) | DRG 248 ==
LOC: M MSPAV 03-27 05:02 → M ED 16:11 → M ED INP 21:30
DX: A04.72 Enterocolitis due to Clostridium difficile, not specified as recurrent (principal); N18.6 End stage renal disease; K76.89 Other specified diseases of liver; I95.9 Hypotension, unspecified; Q61.2 Polycystic kidney, adult type; I73.9 Peripheral vascular disease, unspecified; M10.9 Gout, unspecified; F32.9 Major depressive disorder, single episode, unspecified; M62.08 Separation of muscle (nontraumatic), other site; Z79.899 Other long term (current) drug therapy; Z88.0 Allergy status to penicillin; Z88.6 Allergy status to analgesic agent; Z88.2 Allergy status to sulfonamides; Z88.8 Allergy status to other drugs, medicaments and biological substances; Z88.5 Allergy status to narcotic agent; E87.6 Hypokalemia

== ENCOUNTER 2018-04-25 13:41 | Inpatient (IN) | payer OTHER ==
[~2018-04-25 13:41] MED LIST changes: -GASTROGRAFIN SOLUTION 30ML (Q9963) As Ordered; -ISOVUE-370 76% 100ML VIAL (Q9967) As Ordered; +POTASSIUM CHLORIDE 10 MEQ SR TABLET PO
[2018-04-25] MEDS: NS 500 ML IV (14:45)
[2018-04-25 16:37] LABS: BASO % 0.2 % (0.0-1.0); IMMATURE GRANULOCYTE % 1.4 % (0-3.0); LYMPH # 0.7 10^3/uL (1.5-4.5); LYMPH % 3.3 % (24.0-44.0); MEAN CORPUSCULAR HEMOGLOBIN 27.9 pg (27.0-33.0); MEAN CORPUSCULAR HGB CONC 29.3 g/dl (32.0-36.5); MEAN CORPUSCULAR VOLUME 95.1 fl (80.0-96.0); MONO # 0.9 10^3/uL (0.0-0.8); MONO % 3.9 % (0.0-5.0); NEUTROPHILS # 19.9 10^3/uL (1.8-7.7); NEUTROPHILS % 91.2 % (36.0-66.0); PLATELET COUNT, AUTOMATED 230 10^3/uL (150-450); RED CELL DISTRIBUTION WIDTH 18.1 % (11.5-14.5); WHITE BLOOD COUNT 21.8 10^3/uL (4.0-10.0)
[2018-04-25 16:52] LABS: ALBUMIN 1.2 GM/DL (3.2-5.2); ALKALINE PHOSPHATASE 167 U/L (45-117); ALT/SGPT 24 U/L (12-78); ANION GAP 14 MEQ/L (8-16); AST/SGOT 23 U/L (7-37); BILIRUBIN,DIRECT 0.2 MG/DL (0.0-0.2); BILIRUBIN,TOTAL 0.7 MG/DL (0.2-1.0); BLOOD UREA NITROGEN 16 MG/DL (7-18); CALCIUM LEVEL 7.9 MG/DL (8.5-10.1); CARBON DIOXIDE LEVEL 22 MEQ/L (21-32); CHLORIDE LEVEL 99 MEQ/L (98-107); CREATININE FOR GFR 5.95 MG/DL (0.55-1.30); GLOMERULAR FILTRATION RATE 7.8 (>51); GLUCOSE, FASTING 181 MG/DL (70-100); LIPASE 39 U/L (73-393); POTASSIUM SERUM 4.1 MEQ/L (3.5-5.1); SODIUM LEVEL 135 MEQ/L (136-145); TOTAL PROTEIN 4.2 GM/DL (6.4-8.2)
[2018-04-25 16:55] LABS: LACTIC ACID SEPSIS PROTOCOL 7.9 MMOL/L (0.4-2.0)
[2018-04-25] MEDS: NS 2,180 ML in APPROPRIATE DILUENT 1 EA IV (17:00)
[2018-04-25] MEDS: LevoFLOXacin IV 750 MG in APPROPRIATE DILUENT 1 EA IV (17:15)
[2018-04-25 17:27] LABS: AMYLASE < 2 U/L (25-115)
[2018-04-25 17:40] LABS: ABG BASE EXCESS -6.7 (-2.0-2.0); ABG HCO3 16.3 MEQ/L (22.0-26.0); ABG O2 SATURATION 99.4 % (95.0-99.0); ABG PARTIAL PRESSURE CO2 27.5 mmHg (35.0-45.0); ABG PARTIAL PRESSURE O2 159.6 mmHg (75.0-100.0); ABG STANDARD HCO3 19.1 MEQ/L (22.0-26.0); ABG TOTAL CO2 17.2 MEQ/L (22.0-29.0); ABG pH (ARTERIAL) 7.391 UNITS (7.350-7.450)
[2018-04-25 17:50] LABS: INR 3.16; PROTHROMBIN TIME 33.1 SECONDS (12.1-14.4)
[2018-04-25 17:51] LABS: PARTIAL THROMBOPLASTIN TIME 38.7 SECONDS (25.4-37.6)
[2018-04-25] MEDS ORDERED: ONDANSETRON 4 MG TAB (S0181) PO (19:45)
[2018-04-25] MEDS ORDERED: IPRATROPIUM 0.5MG/ALBUTEROL 2.5MG INH SOL UD 3ML (DUONEB)(J7620) INH (19:45)
[2018-04-25] MEDS ORDERED: metroNIDAZOLE 500 MG in APPROPRIATE DILUENT 1 EA IV (20:00)
[2018-04-25] MEDS ORDERED: NS 1,000 ML IV (20:00)
[2018-04-25] MEDS: NS 1,000 ML IV (20:44)
[2018-04-25] MEDS ORDERED: GABAPENTIN 300 MG CAP PO (21:00)
[2018-04-25 23:23] LABS: LACTIC ACID SEPSIS PROTOCOL 5.5 MMOL/L (0.4-2.0)
[2018-04-25] MEDS: CETIRIZINE (ZyrTEC) 10 MG TAB PO (23:44)
[2018-04-25] MEDS: VANCOMYCIN 1000 MG/20 ML VIAL (J3370) IP (23:44)
[2018-04-25] MEDS: GENTAMICIN SULF INJ 80MG/2ML VIAL (J1580) IP (23:44)
[2018-04-25] MEDS: VANCOMYCIN ORAL SOL 250MG/5ML ORAL SYRINGE PO (23:44)
[2018-04-26 00:56] LABS: APPEARANCE, BODY FLUID CLEAR (CLEAR); BF DIFF IF INDICATED? YES (NO); BF MONONUCLEAR CELL % 40.7 % (0-0); BF POLYMORPHONUCLEAR CELL % 59.3 % (0-0); PERITONEAL DIALYSATE FL COLOR PALE YELLOW (COLORLESS); RBC BODY FLUID < 2 10^3/uL (<2); SOURCE, BODY FLUID PERITONEAL DIALYSATE; WBC BODY FLUID 27 /uL (0-10)
[2018-04-26] MEDS: VANCOMYCIN ORAL SOL 250MG/5ML ORAL SYRINGE PO ×2 (06:32→11:59)
[2018-04-26] MEDS: LEVOTHYROXINE 25MCG TABLET (0.025MG) PO (06:32)
[2018-04-26] MEDS: MIDODRINE 5 MG TAB PO ×2 (06:32→11:59)
[2018-04-26 06:59] LABS: HEMATOCRIT 53.9 % (36.0-47.0); MEAN CORPUSCULAR HEMOGLOBIN 28.1 pg (27.0-33.0); MEAN CORPUSCULAR HGB CONC 29.7 g/dl (32.0-36.5); MEAN CORPUSCULAR VOLUME 94.6 fl (80.0-96.0); PLATELET COUNT, AUTOMATED 197 10^3/uL (150-450); RED CELL DISTRIBUTION WIDTH 18.1 % (11.5-14.5); WHITE BLOOD COUNT 23.3 10^3/uL (4.0-10.0)
[2018-04-26 07:10] LABS: INR 3.09; PROTHROMBIN TIME 32.6 SECONDS (12.1-14.4)
[2018-04-26 07:19] LABS: LACTIC ACID SEPSIS PROTOCOL 5.9 MMOL/L (0.4-2.0)
[2018-04-26] MEDS ORDERED: PIPERACILLIN/TAZOBACTAM SOD 2.25 GM in D5W MINI-BAG PLUS 50 ML IV (07:45)
[2018-04-26 07:52] LABS: ANION GAP 15 MEQ/L (8-16); BLOOD UREA NITROGEN 16 MG/DL (7-18); CALCIUM LEVEL 6.9 MG/DL (8.5-10.1); CARBON DIOXIDE LEVEL 19 MEQ/L (21-32); CHLORIDE LEVEL 104 MEQ/L (98-107); CREATININE FOR GFR 5.18 MG/DL (0.55-1.30); GLOMERULAR FILTRATION RATE 9.1 (>51); GLUCOSE, FASTING 152 MG/DL (70-100); POTASSIUM SERUM 3.8 MEQ/L (3.5-5.1); RBC BODY FLUID < 2 10^3/uL (<2); SODIUM LEVEL 138 MEQ/L (136-145); WBC BODY FLUID 20 /uL (0-10)
[2018-04-26 07:54] LABS: APPEARANCE, BODY FLUID CLEAR (CLEAR); BF DIFF IF INDICATED? YES (NO); PERITONEAL DIALYSATE FL COLOR COLORLESS (COLORLESS); SOURCE, BODY FLUID PERITONEAL DIALYSATE
[2018-04-26] MEDS: LACTOBACILLUS ACIDOPHILUS CAP (BACID) PO ×2 (08:28→11:58)
[2018-04-26] MEDS: POTASSIUM CHLORIDE 10 MEQ SR TABLET PO (08:29)
[2018-04-26] MEDS: MONTELUKAST 10 MG TAB PO (08:29)
[2018-04-26] MEDS: FLUoxetine 10 MG CAP PO (08:29)
[2018-04-26] MEDS: OMEPRAZOLE 20 MG CAP PO (08:29)
[2018-04-26] MEDS ORDERED: PERCOCET 5MG/325MG TAB PO (09:00)
[2018-04-26] MEDS ORDERED: GABAPENTIN 100 MG CAP PO (09:00)
[2018-04-26] MEDS: PERCOCET 5MG/325MG TAB PO (10:22)
[2018-04-26] MEDS ORDERED: PILL CRUSHER/CUTTER 1 EACH XX (12:45)
[2018-04-26 15:06] LABS: AMMONIA 18 uMOL/L (<32)
[2018-04-26] MEDS ORDERED: MEROPENEM INJ 500 MG in APPROPRIATE DILUENT 1 EA IV (16:00)
[2018-04-26 16:25] LABS: BEDSIDE GLUCOSE 226 MG/DL (70-105)
[2018-04-26] MEDS ORDERED: MIDODRINE 5 MG TAB PO (18:00)
[2018-04-26] MEDS ORDERED: SODIUM BICARBONATE 8.4% INJ 50 ML SYRINGE (21:05)
[2018-04-26] MEDS ORDERED: EPINEPHrine 1MG/10ML SYRINGE 1.5IN (21:05)
== END 2018-04-26 21:06 | disposition expired | DRG 720 ==
LOC: M ED 13:41 → M ED INP 19:45 → M PCU 22:17
DX: A41.9 Sepsis, unspecified organism (principal); G93.41 Metabolic encephalopathy; E43 Unspecified severe protein-calorie malnutrition; A04.71 Enterocolitis due to Clostridium difficile, recurrent; E87.2 Acidosis; N18.6 End stage renal disease; I12.0 Hypertensive chronic kidney disease with stage 5 chronic kidney disease or end stage renal disease; Q61.2 Polycystic kidney, adult type; J93.9 Pneumothorax, unspecified; E03.9 Hypothyroidism, unspecified; K21.9 Gastro-esophageal reflux disease without esophagitis; Z68.25 Body mass index [BMI] 25.0-25.9, adult; J45.909 Unspecified asthma, uncomplicated; I95.1 Orthostatic hypotension; M10.9 Gout, unspecified; F32.9 Major depressive disorder, single episode, unspecified; Z86.718 Personal history of other venous thrombosis and embolism; Z79.899 Other long term (current) drug therapy; Z88.0 Allergy status to penicillin; Z88.6 Allergy status to analgesic agent; Z88.2 Allergy status to sulfonamides; Z88.5 Allergy status to narcotic agent; Z88.8 Allergy status to other drugs, medicaments and biological substances; F17.200 Nicotine dependence, unspecified, uncomplicated; R65.20 Severe sepsis without septic shock